=== PATIENT | male | born 1955 | race Caucasian/White ===

== ENCOUNTER 2023-09-26 01:22 | Day surgery (SDC) | payer MEDICARE, SELFPAY ==
[2023-09-12 10:34] VITALS: BMI 26.4
--- NOTE | 2023-09-24 09:07 | SUR.PREOP ---
Patient called regarding upcoming procedure. Reviewed preop instructions, appointment times, and procedure prep.
--- NOTE | 2023-09-25 13:36 | PM.HPGS ---
History of Present Illness History of Present Illness Consent: Risks, benefits, and alternatives have been discussed and questions answered. Patient agrees to proceed with procedure. Chief complaint: neoplasm screening Narrative: Abran Bran is a 68 year old male Referred for colon cancer screening. Review of Systems Review of Systems: All systems reviewed & are unremarkable except as noted in HPI and below PMFSH Family History Family History Sibling Diabetes mellitus Hypertension Mother Carcinoma of colon Social History Social History Smoking status: Never smoker Alcohol intake: never Substance use: never Substance use type: does not use Living arrangements: with family Occupation/Education: occupation Gender identity (if verbalized by the patient): Male Sexual Orientation (if Verbalized by the Patient): Straight or Heterosexual Spiritual care concerns: No Meds Home Medications and Allergies Home Medications Medication Instructions Recorded Confirmed Type potassium chloride 10 mEq 20 meq PO DAILY #180 tabs 08/07/23 09/26/23 Rx tablet,extended release cholecalciferol (vitamin D3) 25 25 mcg PO DAILY 09/12/23 09/26/23 History mcg (1,000 unit) tablet (Vitamin D3) losartan 50 mg tablet 50 mg PO DAILY 09/12/23 09/26/23 History triamterene 75 1 tablet PO DAILY 09/12/23 09/26/23 History mg-hydrochlorothiazide 50 mg tablet Allergies Allergy/AdvReac Type Severity Reaction Status Date / Time No Known Allergies Allergy Verified 09/26/23 06:54 Exam Const: General: alert Orientation/consciousness: patient oriented x3 Resp: Auscultation: clear to auscultation bilaterally Cardio: Rhythm: regular rhythm GI: GI Palp: Yes Soft to palpation and No Tenderness to palpation present (GI) Neuro: General: patient oriented x3 Assessment and Plan Assessment and plan (1) Colon cancer screening: Code(s): Z12.11 - Encounter for screening for malignant neoplasm of colon Status: Acute Assessment and Plan: Colonoscopy with possible biopsy or polypectomy or cautery or injection of substances.
[2023-09-26 06:56] VITALS: BP 130/94; PULSE 79; RESP 18; TEMP 36.6; O2SAT 96; BMI 26.9
[2023-09-26] MEDS: LACTATED RINGERS 1,000 ML 150 ML IV CONT (06:59)
--- NOTE | 2023-09-26 07:32 | WPDANESEPPF ---
Anes - Initial Pre Proc Eval Procedure: Operation Date: 09/26/23 08:00 Proposed Procedures p Screening Colonoscopy - Conner Hinton MD Date/Time: 09/26/23 07:32 Surgeon: Conner Hinton MD Pre Op Diagnosis: neoplasm screening Patient Data Age: 68 Gender: M Height: 1.83 m Weight: 90.2 kg Last Vital Signs Temp 97.9 F 09/26/23 06:56 Pulse 79 09/26/23 06:56 Resp 18 09/26/23 06:56 BP 130/94 H 09/26/23 06:56 Pulse Ox 96 09/26/23 06:56 O2 Del Method Room Air 09/26/23 06:56 Allergies Allergy/AdvReac Type Severity Reaction Status Date / Time No Known Allergies Allergy Verified 09/26/23 06:54 Home Medications Medication Instructions Recorded Confirmed Type potassium chloride 10 mEq 20 meq PO DAILY #180 tabs 08/07/23 09/26/23 Rx tablet,extended release cholecalciferol (vitamin D3) 25 25 mcg PO DAILY 09/12/23 09/26/23 History mcg (1,000 unit) tablet (Vitamin D3) losartan 50 mg tablet 50 mg PO DAILY 09/12/23 09/26/23 History triamterene 75 1 tablet PO DAILY 09/12/23 09/26/23 History mg-hydrochlorothiazide 50 mg tablet Patient hx anesthesia problems: none Family hx anesthesia problems: none Results Review: All pre-operative results and documents have been reviewed as part of the pre-operative evaluation. FORMERLY [facility], [facility] Family History Family History Sibling Diabetes mellitus Hypertension Mother Carcinoma of colon Social History Social History Smoking status: Never smoker Alcohol intake: never Substance use: never Substance use type: does not use Living arrangements: with family Occupation/Education: occupation Gender identity (if verbalized by the patient): Male Sexual Orientation (if Verbalized by the Patient): Straight or Heterosexual Spiritual care concerns: No Anes - Eval Final PreProcedure Day of Procedure 09/26/23 07:32 Patient weight: normal Heart: regular rate and rhythm Lungs: clear to auscultation Airway: Mallampati scale class II Neurological: alert and oriented Last oral intake: >/= 8 hours ASA classification: II Emergent: no Anesthetic plan: proceed Anesthesia type and monitoring: general GIVS and standard monitoring Results Review: All pre-operative results and documents have been reviewed as part of the pre-operative evaluation. Informed Consent: The patient's anesthetic plan and its attendant risks and benefits were discussed with the patient/family/POA. Questions were solicited and answers provided to the satisfaction of the patient/family/POA.
[2023-09-26 08:26] VITALS: BP 116/72; PULSE 66; RESP 18; O2SAT 96
[2023-09-26 08:36] VITALS: BP 122/71; PULSE 69; RESP 20; O2SAT 95
[2023-09-26 08:46] VITALS: BP 135/83; PULSE 67; RESP 16; O2SAT 95
== END 2023-09-26 08:54 | disposition home or self-care (01) ==
PROVIDERS: PCP Family Medicine; Visit Provider Internal Medicine Gastroenterology
PROC: 0DJD8ZZ Inspection of Lower Intestinal Tract, Via Natural or Artificial Opening Endoscopic (ICD-10-PCS; CPT 45378; principal; 2023-09-26 08:00)
DX: Z12.11 Encounter for screening for malignant neoplasm of colon (principal); K63.5 Polyp of colon; K57.30 Diverticulosis of large intestine without perforation or abscess without bleeding; E11.9 Type 2 diabetes mellitus without complications; I10 Essential (primary) hypertension; Z80.0 Family history of malignant neoplasm of digestive organs
CPT/HCPCS: 45385; 88305; J2704; J7120

== ENCOUNTER 2024-12-02 12:20 | Emergency (ER) | payer MEDICARE, SELFPAY ==
--- NOTE | ~2024-12-02 | CT_ITS ---
EXAMINATION: CT abdomen pelvis wo con DATE: 12/02/2024 13:25 INDICATION: Right ureteral stone. TECHNIQUE: Computed tomography (CT) of the abdomen and pelvis was performed without intravenous contr ast. Automated exposure control and iterative reconstruction technique were employed. The dose-length product was 228.83 mGy-cm. COMPARISON: None. FINDINGS: The visualized portions of the lung bases demonstrate mild atelectasis. No pleural effusion . The heart size is normal. No pericardial effusion. The liver, gallbladder, spleen, pancreas, and ad renal glands are normal. There is a 3 mm stone in right kidney. There is mild right hydronephrosis an d proximal hydroureter. There is a 5 mm stone in proximal right ureter. There is a 4 mm stone in left kidney. The prostate is severely enlarged. There are bilateral inguinal hernias containing fat. Ther e is diverticulosis of the colon without evidence of diverticulitis. The appendix is normal. There ar e no dilated loops of bowel. There are no pathologically enlarged lymph nodes. There is no free intra peritoneal fluid. There is moderate thoracic spondylosis and severe lower lumbar spondylosis. 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 IMPRESSION: 1. 5 mm stone in proximal right ureter with mild right hydronephrosis and proximal hydroureter. 2. Bilateral nonobstructing kidney stones. Reviewed, dictated and finalized at location B. M PROJECT MANAGER IMPRESSION: 1. 5 mm stone in proximal right ureter with mild right hydronephrosis and proxi mal hydroureter. 2. Bilateral nonobstructing kidney stones.
--- NOTE | ~2024-12-02 | XR_ITS ---
EXAMINATION: XR abdomen/kub 1V DATE: 12/02/2024 14:12 INDICATION: Right ureteral stone. TECHNIQUE: A supine view of the abdomen on 2 radiographs was obtained. COMPARISON: CT abdomen and pelvis 12/02/2024 FINDINGS: There are no dilated loops of bowel. The kidneys are obscured by bowel. There is a 5 mm sto ne in proximal right ureter at L4. There are phleboliths in the pelvis. IMPRESSION: 1. 5 mm stone in proximal right ureter. Reviewed, dictated and finalized at location B. ENTAL PAVER INSTALLER
[2024-12-02 12:27] VITALS: BP 137/70; PULSE 92; RESP 16; TEMP 36.6; O2SAT 98
[2024-12-02 12:43] LABS: Add Urine Microscopic? NO; Appearance Urine Clear (Clear); Bilirubin Urine Negative (Negative); Blood Urine Negative (Negative); Color Urine Yellow (Yellow); Glucose Urine UA Negative (Negative); Ketones Urine Negative (Negative); Leukocyte Esterase Ur Negative LEU/UL (Negative); Nitrate Urine Negative (Negative); Protein Urine Negative (Negative); Specific Grav Ur 1.012 (1.001-1.035); Urobilinogen Urine 0.2 mg/dL (<2.0)
[2024-12-02 12:44] VITALS: BP 142/94; PULSE 91; RESP 18; O2SAT 96
--- NOTE | 2024-12-02 12:48 | ED_ITS ---
HPI - Recheck/Abnormal Lab/Rx General Chief Complaint: Recheck/Abnormal Lab/Rx Stated Complaint: kidney stone, elevated kidney labs Time Seen by Provider: 12/02/24 12:39 History of Present Illness HPI narrative: 69-year-old male with history of hyperlipidemia, hypertension, kidney stones presents to the ED with at bedside for elevated creatinine. Patient was on vacation in [place] and on 11/17/24 went to the emergency department for right flank pain. He was found have a 5 mm stone at the right ureteropelvic junction with hydronephrosis and perinephric stranding. Patient brought his paperwork with him at bedside, creatinine at that time was 1.11. He then followed up with his PCP approximately a week later and had labs redrawn with a creatinine of 1.6. He then was referred to his urologist, Dr. Marx ([facility]) and had labs drawn yesterday which revealed a creatinine of 1.9. Patient was called by his urologist office and advised to come to the ER for evaluation given elevated creatinine. The patient states he has not had any pain in his flank or abdomen approximately 1 week. He does not believe he has passed the stone. He is not currently taking any pain medications. He did discontinue the naproxen he was taking about 10 days ago after his PCP advised him to discontinue it as that may have been the reason for his elevated creatinine. He denies hematuria, dysuria, abdominal pain, flank pain, N/V. He has no other complaints. Related Data Home Medications ?Medication ?Instructions ?Recorded ?Confirmed ?Last Taken ?Type cholecalciferol (vitamin D3) 25 25 mcg PO DAILY 09/12/23 11/25/24 09/25/23 History mcg (1,000 unit) tablet (Vitamin D3) losartan 50 mg tablet 50 mg PO DAILY 07/14/24 07/14/24 Unknown History potassium chloride 10 mEq 10 meq PO DAILY 07/14/24 07/14/24 Unknown History tablet,extended release triamterene 75 1 tablet PO DAILY 07/14/24 07/14/24 Unknown History mg-hydrochlorothiazide 50 mg tablet tamsulosin 0.4 mg capsule 0.4 mg PO QHS 11/25/24 11/25/24 Unknown History Allergies Allergy/AdvReac Type Severity Reaction Status Date / Time No Known Allergies Allergy Verified 12/02/24 12:34 Review of Systems 2 Review of Systems: All systems reviewed & are unremarkable except as noted in HPI and below PMFSH Family History Family History Sibling Diabetes mellitus Hypertension Mother Carcinoma of colon Social History Social History Social History: Spouse Smoking status: Never smoker Second hand tobacco smoke exposure: No Alcohol intake: never Substance use: never Substance use type: does not use Do You Feel Safe in your Home?: Yes Lack of Transportation: No Lack of Food: Never True Current Housing: I Have Housing Concerned About Future Housing: No Difficulty Paying Gas/Electric Bills: No Difficulty Paying for Meds: No Currently Unemployed: No Education: Don't Know Difficulty w/ Childcare or Family Care: No Living arrangements: with family Occupation/Education: occupation Gender identity (if verbalized by the patient): Male Sexual Orientation (if Verbalized by the Patient): Straight or Heterosexual Spiritual care concerns: No Exam 2 Narrative: GENERAL: Well-appearing, well-nourished, and in no acute distress. HEAD: Normocephalic, atraumatic. EYES: EOMI. ENT: Nares clear, no rhinorrhea or epistaxis. Mucous membranes moist. NECK: Supple. CHEST: Clear to auscultation. No respiratory distress. HEART: Regular rate and rhythm. No murmur heard. Normal peripheral pulses. ABDOMEN: Soft, nontender, nondistended, normal active bowel sounds. No rebound, guarding or rigidity. No CVA tenderness EXTREMITIES: Normal range of motion. No edema. SKIN: Warm, dry, no rash. NEURO: No focal deficits. Alert and oriented x3 Course Vital Signs Vital signs: Vital Signs Temperature 97.9 F 12/02/24 12:27 Pulse Rate 92 12/02/24 12:27 Respiratory Rate 16 12/02/24 12:27 Blood Pressure 137/70 12/02/24 12:27 Pulse Oximetry 98 12/02/24 12:27 Oxygen Delivery Room Air 12/02/24 12:27 Temperature 97.9 F 12/02/24 12:27 Pulse Rate 92 12/02/24 12:27 Respiratory Rate 16 12/02/24 12:27 Blood Pressure 137/70 01/21/25 12:27 Pulse Oximetry 98 12/02/24 12:27 Oxygen Delivery Room Air 12/02/24 12:27 MDM - Recheck/Abnormal Lab/Rx MDM Narrative Medical decision making narrative: 69-year-old male history of kidney stones presents to the emergency department for elevated creatinine on outpatient labs and known 5mm right UPJ stone. See HPI for further hx. Vitals are stable. Patient is afebrile, nontoxic appearing lying comfortably in exam bed. He is asymptomatic at the time of my evaluation. Will repeat lab work and CT abdomen pelvis without contrast to see if the stone is still present. Lab work shows no leukocytosis or anemia. Chemistries are remarkable for a creatinine of 1.99 and BUN of 30. Fluids provided. Urinalysis without infection or hematuria. CT abdomen pelvis shows a 5 mm stone in proximal right ureter with mild right hydronephrosis and proximal hydroureter. Pt and family updated on workup. He has not required any pain medications or antiemetics. Given climbing creatinine, I discussed the case with Dr. Frost (urology) who feels patient can f/u outpatient for treatment with shockwave lithotripsy. Recommends KUB. Patient updated on plan. He is currently on Flomax which I encouraged continuation of. States he also has plenty of Zofran at home to use p.r.n.. He was prescribed [place] at [place] [facility] but unfortunately developed significant nausea with this. Believes he has tolerated oxycodone while at past, will provide a script for this. Discussed close follow-up with his urologist. Return precautions discussed. He and his are agreeable with the plan verbalized understanding. Discharged in stable condition. Lab Data 12/02/24 12:58 12/02/24 12:58 Labs: Lab Results 12/02/24 12/02/24 Range/Units 12:32 12:58 WBC 6.9 (4.5-10.0) K/mm3 RBC 5.68 (4.6-6.20) M/mm3 Hgb 16.7 (14.0-18.0) g/dL Hct 47.4 (42.0-52.0) % MCV 83.5 (80-100) fl MCH 29.4 (26-34) pg MCHC 35.2 (32-36) g/dl RDW 13.8 (11.5-14.5) % Plt Count 212 (150-375) k/mm3 MPV 9.4 (7.4-10.4) fl Immature Gran % (Auto) 0.4 (0-0.5) % Neut % (Auto) 72.4 (45.5-73.1) % Lymph % (Auto) 14.7 L (18.3-44.2) % [place] % (Auto) 8.3 (2.6-8.5) % Eos % (Auto) 3.5 (0-4.4) % Baso % (Auto) 0.7 (0.2-1.2) % Lymph # (Auto) 1.01 (0.9-3.2) K/mm3 [place] # (Auto) 0.6 (0.1-0.6) K/mm3 Eos # (Auto) 0.2 (0-0.3) K/mm3 Baso # (Auto) 0.1 (0.0-0.1) K/mm3 Abs Immat Gran (auto) 0.03 (0.00-0.031) K/mm3 Absolute Neuts (auto) 5.0 (1.3-6.7) K/mm3 Absolute Nucleated RBC 0.000 (0.0-0.012) K/mm3 Nucleated RBC % 0.0 (0.0-0.2) % Sodium 139 (137-145) mmol/L Potassium 3.6 (3.4-5.0) mmol/L Chloride 97 L (98-107) mmol/L Carbon Dioxide 29 (22-30) mmol/L Anion Gap 13 H (4-12) mmol/L BUN 30 H (9-20) mg/dL Creatinine 1.99 H (0.7-1.3) mg/dL Estim Creat Clear Calc 36 ml/min Estimated GFR 34 L (59 - ) Glucose 104 (65-110) mg/dL Calcium 10.0 (8.4-10.2) mg/dL Urine Color Yellow (Yellow) Urine Appearance Clear (Clear) Urine pH 6.0 (5.0-9.0) Ur Specific [place] 1.012 (1.001-1.035) Urine Protein Negative (Negative) mg/dL Urine Glucose (UA) Negative (Negative) mg/dL Urine Ketones Negative (Negative) mg/dL Ur Blood (Man) Negative (Negative) Urine Nitrate Negative (Negative) Urine Bilirubin Negative (Negative) Urine Urobilinogen 0.2 (<2.0) mg/dL Leukocyte Esterase Rfl Negative (Negative) SONIA/UL Discharge Plan Discharge Clinical Impression: Calculus of proximal right ureter, Creatinine elevation Patient Disposition: Home, Self-Care Condition: Stable Instructions: Antibiotic Form, Kidney Stones (ED), How to Strain Your Urine (ED), Lithotripsy (DC) Additional Instructions: You were evaluated in the emergency department for elevated creatinine with unknown kidney stone. The kidney stone is 5 mm on the right ureter as discussed. Creatinine today is 1.99. Please follow-up closely with your urologist as he will need outpatient lithotripsy performed as recommended. Take oxycodone as needed for pain, continue Flomax, take Zofran as needed for nausea. Return to the emergency department if you develop a fever, significantly worsening pain, inability to urinate, or other concerning symptoms. Patient Language: Portuguese Prescriptions: New oxycodone-acetaminophen 5-325 mg tablet 1 tablet PO Q6H PRN (Reason: pain) Qty: 14 0RF No Action prednisone 50 mg tablet 50 mg PO DAILY Qty: 5 0RF doxycycline hyclate 100 mg capsule 100 mg PO DAILY Qty: 20 0RF losartan 50 mg tablet 50 mg PO DAILY potassium chloride 10 mEq tablet extended release 10 meq PO DAILY triamterene-hydrochlorothiazid 75-50 mg tablet 1 tablet PO DAILY omega-3 acid ethyl esters 1 gram capsule 4 cap PO DAILY Qty: 360 1RF tamsulosin 0.4 mg capsule 0.4 mg PO QHS cholecalciferol (vitamin D3) [Vitamin D3] 25 mcg (1,000 unit) Tablet 25 mcg PO DAILY potassium chloride 10 mEq tablet extended release 20 meq PO DAILY Qty: 180 2RF losartan 50 mg tablet See Rx Instructions .ROUTE .COMPLEX Qty: 90 3RF Dose Instruction: TAKE 1 TABLET DAILY Rx Instructions: TAKE 1 TABLET DAILY triamterene-hydrochlorothiazid 75-50 mg tablet See Rx Instructions .ROUTE .COMPLEX Qty: 90 1RF Dose Instruction: TAKE 1 TABLET EVERY MORNING Rx Instructions: TAKE 1 TABLET EVERY MORNING Follow-up/Referrals: Chaparro Zuniga MD [Primary Care Provider] - Jung Marx MD [Physician] -
[2024-12-02 13:11] LABS: Basophils Absolute Auto 0.1 K/mm3 (0.0-0.1); Basophils Percent Auto 0.7 % (0.2-1.2); Eosinophils Absolute Auto 0.2 K/mm3 (0-0.3); Eosinophils Percent Auto 3.5 % (0-4.4); Hematocrit 47.4 % (42.0-52.0); Hemoglobin 16.7 g/dL (14.0-18.0); Immature Granulocyte Absolute 0.03 K/mm3 (0.00-0.031); Immature Granulocyte Percent A 0.4 % (0-0.5); Lymphocytes Absolute Auto 1.01 K/mm3 (0.9-3.2); Lymphocytes Percent Auto 14.7 % (18.3-44.2); Mean Corpuscular HGB Conc 35.2 g/dl (32-36); Mean Corpuscular Hemoglobin 29.4 pg (26-34); Mean Corpuscular Volume 83.5 fl (80-100); Mean Platelet Volume 9.4 fl (7.4-10.4); Monocytes Absolute Auto 0.6 K/mm3 (0.1-0.6); Monocytes Percent Auto 8.3 % (2.6-8.5); Neutrophils Percent Auto 72.4 % (45.5-73.1); Platelet Count Result 212 k/mm3 (150-375); Red Blood Count 5.68 M/mm3 (4.6-6.20); Red Cell Distribution Width 13.8 % (11.5-14.5); White Blood Count 6.9 K/mm3 (4.5-10.0)
[2024-12-02 13:22] LABS: Anion Gap 13 mmol/L (4-12); Blood Urea Nitrogen 30 mg/dL (9-20); Carbon Dioxide 29 mmol/L (22-30); Chloride 97 mmol/L (98-107); Estimated CRCL calculation 36 ml/min; Estimated Glomerular Filt Rate 34; Glucose 104 mg/dL (65-110); Potassium 3.6 mmol/L (3.4-5.0); Sodium 139 mmol/L (137-145)
[2024-12-02] MEDS: SODIUM CHLORIDE 0.9% IV 1,000 ML 999 ML IV CONT (13:46)
[2024-12-02 14:22] VITALS: BP 142/88; PULSE 77; RESP 20; O2SAT 95
--- OUTSIDE RECORDS SUMMARY | 2024-12-04 18:10 | XMS_ITS | Patient Health Summary ---
Author Organization [facility] Address [address] [place] [address] Care Team Providers Care Table Tender Name Role Phone Unavailable Primary Care Provider Unavailabl e Note from [facility],non-owned Affiliates and Associated Physician Practices is amultiple site organization consisting of ambulatory clinics and hospital sitesin [place], [place], [place] and [place]. This disclosure is being madepursuant to the Care Everywhere program and may not contain all information available regarding this patient. Last updated 18.[facility] Allergies No known active allergies Medications Be aware that medications may not be up to date on this document. Always verify current medications with the patient. No known medications Active Problems No known active problems Immunizations * FLU VACCINE QUAD IIV4 PF ID(Given 08/18/2016) * INFLUENZA VACCINE, QUADR. (FLUZONE; FLULAVAL; FLUARIX; AFLURIA QUADRIVALENT; 6MO+), 0.5 ML (IIV4)(Given 09/20/2021, 08/20/2020, 08/26/2019, 08/17/2017) * iNFLUENZA VACCINE, RECOM-AVENDANO, QUADR. (FLUBLOCK QUADRIVALENT; 18Y+) (RIV4)(Given 10/18/2018) Social History Tobacco Use Types Packs/Day Years Used Date Smoking Tobacco: Never Assessed Sex and Gender Information Value Date Recorded Sex Assigned at Not on file Gender Identity Not on file Sexual Orientation Not on file Procedures * DERMATOPATHOLOGY(Performed 01/02/2023) * DERMATOPATHOLOGY(Performed 07/11/2022) * DERMATOPATHOLOGY(Performed 01/17/2021) * CULTURE ANAEROBE(Performed 01/27/2010) Performed for Cellulitis of Leg * CULTURE WOUND(Performed 01/27/2010) Performed for Cellulitis of Leg * GROSS + MICRO EXAM(Performed 01/26/2010) Performed for Cellulitis and Abscess of Unspecified Site Results * DERMATOPATHOLOGY (01/02/2023 12:00 AM STARTER MECHANIC) Only the most recent of3 resultswithin the time period is included. Case Report Dermatopathology Report ? Case: [id number] ? Authorizing Provider: ??Pranav Mathew MD ?Collected: ? 01/02/2023 12:00 AM ? Ordering Location: ? [facility] ?Received: ?01/03/2023 04:39 PM ? Pathologist: ? Khadra Meyer MD ? Specimen: ?Skin, left preauricular ? 3 4:12 PM [facility] DERMATOPATHOLOGY LABORATORY Final Diagnosis Specimen A. SKIN, left preauricular: SEBORRHEIC KERATOSIS (L82.1) 3 4:12 PM STARTER MECHANIC DERMATOPATHOLOGY LABORATORY Clinical History Nevus vs C CA vs BCCA Path#[id number] 3 4:12 PM STARTER MECHANIC DERMATOPATHOLOGY LABORATORY Gross Description Specimen A: Received is one formalin filled container labeled with the patient's name and designated left preauricular. The specimen consists of a shave biopsy measuring 5x4x1 mm. Jar 0. 3 4:12 PM [facility] DERMATOPATHOLOGY LABORATORY Microscopic Description Specimen A. SKIN, left preauricular: Sections show an acanthotic lesion composed of relatively uniform keratinocytes. There is hyperkeratosis and pseudo horn cysts formation. 3 4:12 PM [facility] DERMATOPATHOLOGY LABORATORY Disclaimer An external and internal positive and negative controls are appropriate for the histochemical, immunohistochemical and immunofluorescence stain(s) in this case (if any), except where stated explicitly. The performance characteristics of the stain(s) cited in this report were developed and its performance characteristic determined by the Dermatopathology Laboratory at [facility], directed by Dr. Osorio Anton. These tests need not be, and therefore are not, approved by the [place] Food and Drug Administration. The tests are used for clinical purposes. Billing Codes Specimen Charges Stain Charges 65106 1 3 4:12 PM [facility] DERMATOPATHOLOGY LABORATORY Embedded Images 3 4:12 PM [facility] DERMATOPATHOLOGY LABORATORY Pathology/Cytolog y TISSUE SPECIMEN FROM SKIN / Unknown 01/02/2023 01/03/2023 4:39 PM STARTER MECHANIC Pranav Mathew MD LAB - PATHOLOGY/CYTO LOGY ORDERABLES DERMATOPATHOLOGY LABORATORY [facility] - Department of Dermatology [address], [address] [phone] * CULTURE ANAEROBE (01/27/2010 2:35 PM CDT) Report [facility] Comment: Final - CULTURE ANAEROBIC POSITIVE COCCI ?Moderate growth ? ENTIRE LOWER LIMB / Unknown 01/27/2010 2:35 PM CDT Narrative [facility] - 02/01/2010 12:45 PM CDT brandon 01/27-Left lower leg abscess Steve Pina MD LAB - MICROBIOLO GY ORDERABLES Performing Organization Address [facility] Co de Phone Number [facility] [address] [place] [address] * CULTURE WOUND (01/27/2010 2:35 PM CDT) Report [facility] Comment: Final - GRAM STAIN Moderate WBC's Moderate gram positive cocci Organism observed in direct smear failed to grow in aerobic culture. CULTURE No growth. ENTIRE LOWER LIMB / Unknown 01/27/2010 2:35 PM CDT Narrative [facility] - 01/29/2010 8:10 AM CDT brandon -L.Lower Leg Abscess Steve Pina MD LAB - MICROBIOLO GY ORDERABLES Performing Organization Address [facility] Co de Phone Number [facility] [address] [place] [address] * GROSS + MICRO EXAM (01/26/2010 12:00 AM CDT) [facility] Surgeon DR. Giovanny PINA [facility] Grossed By ALFIE ABARCA [facility] Gross Report [facility] Comment: COPY TO ??SURGERY CENTER INDICATION FOR PROCEDURE ??LEFT CALF ABSCESS OPERATION ??INCISION AND DRAINAGE, LEFT LEG, CALF ABSCESS GROSS THE SPECIMEN IS RECEIVED IN ONE CONTAINER LABELED WITH THE PATIENT'S NAME AND BIOPSY, LEFT CALF ABSCESS. THE SPECIMEN CONSISTS OF WHAT APPEARS TO BE A DISRUPTED AND COLLAPSED CYST/NODULE. ??THE WALL MEASURES 1 X 1 X 0.1 CM. ??IT IS SERIALLY SECTIONED AND SUBMITTED ENTIRELY IN A SINGLE CASSETTE. LW/DC Microscopic Examination [facility] Comment: MICROSCOPIC THE LEFT CALF ABSCESS BIOPSY SHOWS FRAGMENTS OF KERATINOUS DEBRIS WITH SOME ADMIXED ACUTE INFLAMMATORY CELLS WHICH ARE NOT NUMEROUS. ??THE IMPRESSION IS THAT OF A KERATINOUS CYST RATHER THAN AN ABSCESS. AB/KM Diagnosis [facility] Comment: DIAGNOSIS 1. ?LEFT CALF LESION, BIOPSY -- ?KERATINOUS DEBRIS AND INFLAMMATION (SEE MICROSCOPIC) AB/KM Released by GALILEA COHEN M.D. [facility] CPT Code 55008 [facility] BIOPSY / Unknown 01/26/2010 01/28/20 10 11:07 AM CDT Steve Pina MD LAB - PATHOLOGY/ CYTOLOGY ORDERABLES [facility] [address] [place] [address]
--- OUTSIDE RECORDS SUMMARY | 2024-12-04 18:10 | XMS_ITS | Encounter Summary ---
Author Organization [facility] Address [address] [facility] [address] [place] [address] Care Team Providers Care Hook Up Name Role Phone Unavailable Primary Care Provider Unavailabl e Encounter Details Date Type Department Care Team (Late st Contact Info) Description 07/11/2022 Lab Requisition [facility] Care DermPath Lab [address] [facility] [place] [phone] Pranav Mathew MD [address] [place] [address] Social History Tobacco Use Types Packs/Day Years Used Date Smoking Tobacco: Never Assessed Sex and Gender Information Value Date Recorded Sex Assigned at Not on file Gender Identity Not on file Sexual Orientation Not on file documented as of this encounter Plan of Treatment Not on file documented as of this encounter Procedures Procedure Name Priority Date/Time Associated Diagnosis Comments DERMATOPATHOLOGY Routine 07/11/2022 12:0 0 AM CDT documented in this encounter Results * DERMATOPATHOLOGY (07/11/2022 12:00 AM CDT) Case Report Dermatopathology Report ? Case: [id number] ? Authorizing Provider: ??Pranav Mathew MD ?Collected: ? 07/11/2022 12:00 AM ? Ordering Location: ? [facility] ?Received: ?07/11/2022 04:58 PM ? Pathologist: ? Valencia Anton MD ? Specimen: ?Skin, right shoulder ? 2 4:18 PM CDT DERMATOPATHOLOGY LABORATORY Final Diagnosis Specimen A. 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 Melanoma. Path# [id number] 2 4:18 PM CDT DERMATOPATHOLOGY LABORATORY Gross Description Specimen A: Received is one formalin filled container labeled with the patient's name and designated right shoulder. The specimen consists of a shave biopsy measuring [id number]. Jar 0. 2 4:18 PM CDT DERMATOPATHOLOGY LABORATORY Microscopic Description Specimen A. SKIN, right shoulder: The epidermis shows parakeratosis, full thickness disorderly maturation of keratinocytes, mitoses at different levels, and dyskeratotic cells. 2 4:18 PM CDT DERMATOPATHOLOGY LABORATORY Disclaimer An external and internal positive and negative controls are appropriate for the histochemical, immunohistochemical and immunofluorescence stain(s) in this case (if any), except where stated explicitly. The performance characteristics of the stain(s) cited in this report were developed and its performance characteristic determined by the Dermatopathology Laboratory at [facility], directed by Dr. Osorio Anton. These tests need not be, and therefore are not, approved by the [place] Food and Drug Administration. The tests are used for clinical purposes. Billing Codes Specimen Charges Stain Charges 16971 1 2 4:18 PM CDT DERMATOPATHOLOGY LABORATORY Embedded Images 2 4:18 PM CDT DERMATOPATHOLOGY LABORATORY Pathology/Cytolog y TISSUE SPECIMEN FROM SKIN / Unknown 07/11/2022 07/11/2022 4:58 PM CDT Pranav Mathew MD LAB - PATHOLOGY/CYTO LOGY ORDERABLES DER[facility]ATHOLOGY LABORATORY [facility] [address] [place] [address], [address] [phone] documented in this encounter Visit Diagnoses Not on filedocumented in this encounter
--- OUTSIDE RECORDS SUMMARY | 2024-12-04 18:10 | XMS_ITS | Encounter Summary ---
Author Organization [facility] Address [address] [facility] [place] [address] Care Team Providers Care License And Permit Specialist Name Role Phone Unavailable Primary Care Provider Unavailabl e Encounter Details Date Type Department Care Team (Late st Contact Info) Description 01/03/2023 Lab Requisition [facility] Care DermPath Lab [address] [facility] [place] [phone] Pranav Mathew MD [address] [facility] [place] [address] Social History Tobacco Use Types [...] Priority Date/Time Associated Diagnosis Comments DERMATOPATHOLOGY Routine 01/02/2023 12:0 0 AM REGIONAL DRIVER documented in this encounter Results * DERMATOPATHOLOGY (01/02/2023 12:00 AM REGIONAL DRIVER) Case Report Dermatopathology Report ? Case: [id number] ? Authorizing Provider: ??Pranav Mathew MD ?Collected: ? 01/02/2023 12:00 AM ? Ordering Location: ? [facility] ?Received: ?01/03/2023 04:39 PM ? Pathologist: ? Khadra Meyer MD ? Specimen: ?Skin, left preauricular ? 3 4:12 PM [facility] DERMATOPATHOLOGY LABORATORY Final Diagnosis Specimen A. SKIN, left preauricular: SEBORRHEIC KERATOSIS (L82.1) 3 4:12 PM [facility] DERMATOPATHOLOGY LABORATORY Clinical History Nevus vs C CA vs BCCA Path#[id number] 3 4:12 PM [facility] DERMATOPATHOLOGY LABORATORY Gross Description Specimen A: Received is one formalin filled container labeled with the patient's name and designated left preauricular. The specimen consists of a shave biopsy measuring 5x4x1 mm. Jar 0. 3 4:12 PM [facility] DERMATOPATHOLOGY LABORATORY Microscopic Description Specimen A. SKIN, left preauricular: Sections show an acanthotic lesion composed of relatively uniform keratinocytes. There is hyperkeratosis and pseudo horn cysts formation. 3 4:12 PM [facility] DERMATOPATHOLOGY LABORATORY Disclaimer An external and internal positive and negative controls are appropriate for the histochemical, immunohistochemical and immunofluorescence stain(s) in this case (if any), except where stated explicitly. The performance characteristics of the stain(s) cited in this report were developed and its performance characteristic determined by the Dermatopathology Laboratory at [facility], directed by Dr. Osorio Anton. These tests need not be, and therefore are not, approved by the [place] Food and Drug Administration. The tests are used for clinical purposes. Billing Codes Specimen Charges Stain Charges 73201 1 3 4:12 PM REGIONAL DRIVER DERMATOPATHOLOGY LABORATORY Embedded Images 3 4:12 PM REGIONAL DRIVER DERMATOPATHOLOGY LABORATORY Pathology/Cytolog y TISSUE SPECIMEN FROM SKIN / Unknown 01/02/2023 01/03/2023 4:39 PM REGIONAL DRIVER Pranav Mathew MD LAB - PATHOLOGY/CYTO LOGY ORDERABLES DERMATOPATHOLOGY LABORATORY [facility] - Department of Dermatology [facility] [address] [place] [address], [address] [phone] documented in this encounter Visit Diagnoses Not on filedocumented in this encounter
--- OUTSIDE RECORDS SUMMARY | 2024-12-04 18:10 | XMS_ITS | Referral Summary ---
Author Organization [facility] Address [address] [facility] [place] [address] Care Team Providers Care Services Coordinator Name Role Phone Unavailable Primary Care Provider Unavailabl e Source Comments [facility],non-owned Affiliates and Associated Physician Practices is amultiple site organization consisting of ambulatory clinics and hospital sitesin [place], [place], [place] and [place]. This disclosure is being madepursuant to the Care Everywhere program and may not contain all information available regarding this patient. Last updated 18.[facility] Allergies No known active allergies Medications Be aware that medications may not be up to date on this document. Always verify current medications with the patient. No known medications Active Problems No known active problems Immunizations Name Administration Dates Next Due FLU VACCINE QUAD IIV4 PF ID 08/18/2016 INFLUENZA VACCINE, QUADR. (F LUZONE; FLULAVAL; FLUARIX; AFLURIA QUADRIVALENT; 6MO+), 0.5 ML (IIV4) 09/20/2021,08/20/2020,08/26/2019, 017 iNFLUENZA VACCINE, RECOM-AVENDANO, QUADR. (FLUBLOCK QUADRIVALENT; 18Y+) (RIV4) 10/18/2018 Social History Tobacco Use Types Packs/Day Years Used Date Smoking Tobacco: Never Assessed Sex and Gender Information Value Date Recorded Sex Assigned at Not on file Gender Identity Not on file Sexual Orientation Not on file Plan of Treatment Not on file
--- OUTSIDE RECORDS SUMMARY | 2024-12-04 18:10 | XMS_ITS | Encounter Summary ---
Author Organization [facility] Address [address] [place] [address] Care Team Providers Care Beef Lugger Name Role Phone Unavailable Primary Care Provider Unavailabl e Encounter Details Date Type Department Care Team (Late st Contact Info) Description 01/18/2021 Lab Requisition [facility] DermPath Lab [address] [facility] [place] [phone] Pranav Mathew MD [address] [place] [address] Social History Tobacco Use Types [...] Priority Date/Time Associated Diagnosis Comments DERMATOPATHOLOGY Routine 01/17/2021 3:33 AM RETIREMENT ADMINISTRATOR documented in this encounter Results * DERMATOPATHOLOGY (01/17/2021 3:33 AM RETIREMENT ADMINISTRATOR) Case Report Dermatopathology Report ? Case: [id number] ? Authorizing Provider: ??Pranav Mathew MD ?Collected: ? 01/17/2021 03:33 AM ? Ordering Location: ? [facility] Derm[facility] Lab ?Received: ?01/18/2021 06:42 AM ? Pathologist: ? Jessica Castelan MD ? Specimen: ?Skin, left lower lip ? 1:29 PM [facility] DERMATOPATHOLOGY LABORATORY Final Diagnosis Specimen A. SKIN, left lower lip: SQUAMOUS CELL CARCINOMA IN SITU, PRESENT AT THE BASE OF THE SPECIMEN (D04.39) (see microscopic description and comment) 1:29 PM [facility] DERMATOPATHOLOGY LABORATORY Clinical History AK vs SCCA. Path# [id number]. 1:29 PM [facility] DERMATOPATHOLOGY LABORATORY Gross Description Specimen A: Received is one formalin filled container labeled with the patient's name and designated left lower lip. The specimen consists of a shave biopsy measuring [id number]. Jar 0. 1:29 PM [facility] DERMATOPATHOLOGY LABORATORY Microscopic Description Specimen A. SKIN, left lower lip: The epidermis shows parakeratosis, full thickness disorderly maturation of keratinocytes, mitoses at different levels, and dyskeratotic cells. The lesion extends to the base of the biopsy. COMMENT: An invasive squamous cell carcinoma cannot be ruled out. 1:29 PM [facility] DERMATOPATHOLOGY LABORATORY Disclaimer An external and internal positive and negative controls are appropriate for the histochemical, immunohistochemical and immunofluorescence stain(s) in this case (if any), except where stated explicitly. The performance characteristics of the stain(s) cited in this report were developed and its performance characteristic determined by the Dermatopathology Laboratory at [facility], directed by Dr. Osorio Anton. These tests need not be, and therefore are not, approved by the [place] Food and Drug Administration. The tests are used for clinical purposes. Billing Codes Specimen Charges Stain Charges 69704 1 1 1:29 PM RETIREMENT ADMINISTRATOR DERMATOPATHOLOGY LABORATORY Embedded Images 1 1:29 PM RETIREMENT ADMINISTRATOR DERMATOPATHOLOGY LABORATORY Pathology/Cytolo gy TISSUE SPECIMEN FROM SKIN / Unknown 01/17/2021 3:33 AM RETIREMENT ADMINISTRATOR 01/18/2021 6:42 AM RETIREMENT ADMINISTRATOR Pranav Mathew MD LAB - PATHOLOGY/CYTO LOGY ORDERABLES DERMATOPATHOLOGY LABORATORY [facility] - Department of Dermatology [facility] Medicine [address] [place] [address], [address] [phone] documented in this encounter Visit Diagnoses Not on filedocumented in this encounter
--- OUTSIDE RECORDS SUMMARY | 2024-12-04 18:10 | XMS_ITS | Referral Summary ---
Author Organization [facility] Address [address] [place] [address] Care Team Providers Care Alpine Patroller Name Role Phone Chaparro Zuniga MD Primary Care Provider Encounters Date Type Department Care Team Description 10/23/2024 9:29 AM DRAPERY AND UPHOLSTERY ESTIMATOR - 10/23/2024 11:59 PM DRAPERY AND UPHOLSTERY ESTIMATOR Hospital Encounter [facility] [address] [place] [address] Status post orthopedic surgery, follow-up exam Discharge Disposition: Discharge to home or self care 10/23/2024 9:45 AM DRAPERY AND UPHOLSTERY ESTIMATOR Office Visit [facility] Orthopaedic Surgery [address] [facility] Advanced Medicine 12th [place] [address] [place] [address] Conor Almanza MD Status post orthopedic surgery, follow-up exam (Primary Dx); Acute pain of right shoulder; Infection of joint (HCC) from Last 3 Months Allergies No known active allergies Medications potassium chloride ER 10 mEq CR tabletIndicatio ns:hypokalemia prevention Take 1 tablet/capsu le (10 mEq total) by mouth every morning 11/13/2021 Active triamterene-hyd roCHLOROthiazid e (MAXZIDE,DYAZID E) 75-50 mg per tabletIndicatio ns:Edema,hypert ension Take 1 tablet by mouth every morning 09/09/2021 Active losartan (COZAAR) 50 mg tabletIndicatio ns:hypertension Take 1 tablet (50 mg total) by mouth every morning Active cholecalciferol (VITAMIN D-3) 1,000 unit capsuleIndicati ons:Vitamin D Deficiency Take 1 capsule (1,000 Units total) by mouth every morning Active Active Problems Problem Noted Date Diagnosed Date Infection of joint 11/07/2022 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 Overview (11/03/2022): Added automatically from request for surgery [id number] Hypertension 12/27/2021 At risk for obstructive sleep apnea 12/27/2021 Complete rupture of rotator cuff 12/16/2021 Overview (12/16/2021): Added automatically from request for surgery [id number] Immunizations Name Administration Dates Next Due Influenza, Unspecified 09/29/2022 Social History Tobacco Use Types Packs/Day Years Used Date Smoking Tobacco: Never Smokeless Tobacco: Never Tobacco Cessation:Counseling Given: Not Answered OASIS D0700: Social Isolation Answer Da te Recorded Frequency of experiencing loneliness or isolatio n Never 12/19/2022 OASIS A1250: Transportation Answer Date Recorded Lack of Transportation (Medical) No 12/19/2022 Lack of Transportation (Non-Medical) No 12/19/2022 Patient Unable or Declines to Respond No 12/19/2022 OASIS B1300: Health Literacy Answer Daniel e Recorded Frequency of needing help to read materials from doctor or pharmacy Never 12/19/2022 AUDIT-C Answer Date Recorded Frequency of Alcohol Consumption Not on file 04/25/2023 Q2: How many drinks containi ng alcohol do you have on a typical day when you are drinking? Patient does not drink Frequency of Binge Drinking Not on file 04/12 Personal Safety Answer Date Recorded Getting School Help Needed Denies 10/24 Sex and Gender Information Value Date Recorded Sex Assigned at Not on file Legal Sex Male 12:54 AM DRAPERY AND UPHOLSTERY ESTIMATOR Gender Identity Not on file Sexual Orientation Not on file Last Filed Vital Signs Vital Sign Reading Time Taken Comments Blood Pressure 139/87 04/25/2023 9:43 AM CDT Pulse 72 04/25/2023 9:43 AM CDT Temperature 36.3 ??C (97.3 ??F) 04/25/2023 9:43 AM CD T Respiratory Rate 17 12/19/2022 12:40 PM DRAPERY AND UPHOLSTERY ESTIMATOR Oxygen Saturation 95% 04/25/2023 9:43 AM CDT Inhaled Oxygen Concentration - - Weight 93.4 kg (206 lb) 04/25/2023 9:43 AM CDT Height 182.9 cm (6') 04/25/2023 9:43 AM CDT Body Mass Index 27.94 04/25/2023 9:43 AM CDT Plan of Treatment Not on file Medical Devices Implanted Type Area Case Management Social Worker Device Identifier Shelf Expiration Date Model / Serial / Lot Tornier Inc [id number] Tornier Aequalis Perform 25mm Lateralize Augment Reverse Shoulder - [id number] - [id number] Implanted:Qty : 1 on 12/28/2021 by Conor Almanza MD at [facility] Other - see comments Right: Shoulder [employer] [id number] 11/14/2026 [id number] / [id number] / [employer] Dwx3ss Stem Perform Sz 3 Humeral - [id number] - [id number] Implanted:Qty : 1 on 12/28/2021 by Conor Almanza MD at [facility] Other - see comments Right: Shoulder [employer] [id number] 11/24/2026 [id number] / [id number] / [employer] Tornier Aequalis Perform 39mm Reverse Shoulder Standard Sphere [id number] - [id number] - [id number] Implanted:Qty : 1 on 11/07/2022 by Maik Galdamez MD at [facility] Other - see comments Right: Shoulder [employer] [id number] 08/15/2027 [id number] / [id number] / Description:Implant pause pe rformed [employer] Insert Perform 10 Deg [id number] - [id number] - [id number] Implanted:Qty : 1 on 11/07/2022 by Maik Galdamez MD at [facility] Other - see comments Right: Shoulder Agu[employer] [id number] 08/07/2025 [id number] / [id number] / Description:implant Pause pe rformed Tornier Inc Nfh640 Aequalis Perform Reversed 5mm 38mm Peripheral Glenoid Screw - Sna - [id number] Implanted:Qty : 1 on 12/28/2021 by Conor Almanza MD at [facility] Screw Right: Shoulder [employer] [id number] / NA / Tornier Inc [id number] Aequalis Perform Reversed Od6.5 Mm L45 Mm Central Glenoid Screw Baseplate Nonsterile - Sna - [id number] Implanted:Qty : 1 on 12/28/2021 by Conor Almanza MD at [facility] Screw Right: Shoulder [employer] [id number] / NA / Tornier Inc [id number] Aequalis Perform Reversed 5mm 26mm Peripheral Glenoid Screw - Sna - [id number] Implanted:Qty : 1 on 12/28/2021 by Conor Almanza MD at [facility] Screw Right: Shoulder [employer] [id number] / NA / Explanted Type Area Case Management Social Worker Device Identifier Shelf Expiration Date Model / Serial / Lot Tornier Inc Bvo495 Tornier Aequalis Perform 39mm Reverse Shoulder Standard Sphere - [id number] - [id number] Implanted:Qty : 1 on 12/28/2021 by Conor Almanza MD at [facility] Explanted:Qty : 1 on 11/07/2022 by Maik Galdamez MD at [facility] Other - see comments Right: Shoulder [employer] [id number] 06/30/2026 [id number] / [id number] / [employer] [id number] Insert Perform [id number] - [id number] - [id number] Implanted:Qty : 1 on 12/28/2021 by Conor Almanza MD at [facility] Explanted:Qty : 1 on 11/07/2022 by Maik Galdamez MD at [facility] Other - see comments Right: Shoulder [employer] [id number] 10/21/2026 [id number] / [id number] / Tornier Inc Zcf251 Aequalis Perform Reversed Od6.5 Mm L30 Mm Central Glenoid Screw Baseplate Nonsterile - Sna - [id number] Explanted:Qty : 1 on 12/28/2021 by Conor Almanza MD at [facility] Screw Right: Shoulder [employer] [id number] / NA / [employer] Aequalis Perform Reversed Od5 Mm L50 Mm Peripheral Glenoid Screw Baseplate Nonsterile Zie825 - Sna - [id number] Explanted:Qty : 1 on 11/07/2022 by Maik Galdamez MD at [facility] Screw Right: Shoulder [employer] [id number] / NA / Description:Used to explant insert Procedures Procedure Name Priority Date/Time Associated Diagnosis Comments XR SHOULDER RIGHT 2 OR MORE VIEWS Schedule Routine, Read Routine (OP Routine) 10/23/2024 9:36 AM DRAPERY AND UPHOLSTERY ESTIMATOR Status post orthopedic surgery, follow-up exam from Last 3 Months Results * XR Shoulder Right 2 or More Views (10/23/2024 9:36 AM DRAPERY AND UPHOLSTERY ESTIMATOR) Anatomical Region Laterality Modality Upper Extremities, Shoulder Right Comp uted Radiography 10/23/2024 9:59 AM DRAPERY AND UPHOLSTERY ESTIMATOR Impressions 10/23/2024 11:43 AM DRAPERY AND UPHOLSTERY ESTIMATOR 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 Dictated by: Isabel Mcnamara MD The radiology attending physician has personally reviewed this study, and had reviewed and/or edited this written report and agrees with it. Electronically signed by: Tavares Liu D.O. Narrative 10/23/2024 11:43 AM DRAPERY AND UPHOLSTERY ESTIMATOR EXAMINATION: XR SHOULDER RIGHT 2 OR MORE VIEWS HISTORY: ??Right shoulder pain FINDINGS: Comparison is made to right shoulder radiographs 10/25/2023. 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 ??No periprosthetic fracture or lucency. ??Moderate acromioclavicular joint osteoarthritis. Procedure Note Tavares Liu, DO - 10/23/2024 EXAMINATION: XR SHOULDER RIGHT 2 OR MORE VIEWS HISTORY: Right shoulder pain FINDINGS: Comparison is made to right shoulder radiographs 10/25/2023. 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 No periprosthetic fracture or lucency. Moderate acromioclavicular joint osteoarthritis. 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 Dictated by: Isabel Mcnamara MD The radiology attending physician has personally reviewed this study, and had reviewed and/or edited this written report and agrees with it. Electronically signed by: Tavares iLu D.O. Conor Almanza MD IMG XR PROCEDURES Fin al Result from Last 3 Months Insurance MEDICARE [facility] Member Subscriber Plan / Payer ( fective 2022-Present) Name:Abran Bran Relation to Subscriber:Self Name:Abran Bran Payer ID:[id number] Group ID:Not on file Type:[facility] Address: [facility] [address] [place] [address] COUNT INCLUDES THE [facility] [address] MEDICARE [facility]LY [facility] INSURANCE COUNT INCLUDES THE [facility] [id number] MEDICARE [facility] INSURANCE Advance Directives For more information, please contact: [phone] * Full Code (Latest Code Status on File) Date Activated Date Inactivated Comments 11/07/2022 5:45 PM 11/11/2022 6:19 PM Care Teams Alpine Patroller Relationship Specialty Start Date End Date Chaparro Zuniga MD [address] [facility] [address] [place] [address] PCP - General Family Medicine 12/16/21
--- OUTSIDE RECORDS SUMMARY | 2024-12-04 18:10 | XMS_ITS | Encounter Summary ---
Author Organization [facility] Address [address] [place] [address] Phone Care Team Providers Care Accounts Payable Assistant Name Role Phone Chaparro Zuniga MD Primary Care Provider Encounter Details Date Type Department Care Team (Late st Contact Info) Description 11/02/2022 Telephone [facility] Orthopaedic Surgery [address] [facility] 2nd [address] [place] [address] Conor Almanza MD [address] [facility] [address] [place] [address] Social History Tobacco Use Types Packs/Day Years Used Date Smoking Tobacco: Never Smokeless Tobacco: Never AUDIT-C Answer Date Recorded Q1: How often do you have a drink containing alc ohol? Never 12/22/2021 Average Number of Drinks Not on file 022 Frequency of Binge Drinking Not on file 12/13 Sex and Gender Information Value Date Recorded Sex Assigned at Not on file Legal Sex Male 12:54 AM INDUSTRIAL GAS SERVICER Gender Identity Not on file Sexual Orientation Not on file documented as of this encounter Plan of Treatment Not on file documented as of this encounter Visit Diagnoses Not on filedocumented in this encounter Care Teams Accounts Payable Assistant Relationship Specialty Start Date End Date Chaparro Zuniga MD [address] [facility] [address] [address] PCP - General Family Medicine 12/16/21 documented as of this encounter
--- OUTSIDE RECORDS SUMMARY | 2024-12-04 18:10 | XMS_ITS | Clinical Summary ---
Author Organization [email or web address] Address [address] [facility] [place] [address] Care Team Providers Care Animal Shelter Manager Name Role Phone Unavailable Primary Care Provider Unavailabl e Source Comments [email or web address],non-owned Affiliates and Associated Physician Practices is amultiple site organization consisting of ambulatory clinics and hospital sitesin [place], [place], [place] and [place]. This disclosure is being madepursuant to the Care Everywhere program and may not contain all information available regarding this patient. Last updated [email or web address] Allergies No known active allergies Medications Be [...] Orientation Not on file Plan of Treatment Health Maintenance Due Date Last Done Comments COLOGUARD (AGES 45-75) - COLON CA SCREENING 1957 COLON MONITORING 1957 COLONOSCOPY - COLON CA SCREENING 1957 CT COLONOGRAPHY - COLON CA SCREENING 1957 Colorectal Cancer Screening 1957 FIT - COLON CA SCREENING 1957 FLEX SIG - COLON CA SCREENING 1957 LIPID TESTING 1957 MEDICARE AWV ? 12 MONTHS 1957 HEPATITIS C SCREENING 06/07/1975 DTAP/TDAP/TD VACCINES (1 - Tdap) 1976 PNEUMOCOCCAL VACCINE 50+ (1 of 1 - PCV) 2007 ZOSTER VACCINE (1 of 2) 2007 COVID-19 VACCINE (2 - season) 2024 04/02/2021 INFLUENZA VACCINE (#1) 2024 , 08/20/2020, 08/26/2019, Additional history exists DEPRESSION SCREENING 11/12/2024 Respiratory Syncytial Virus (RSV) Vaccine Pt: or over 60 yrs (1 - 1-dose 75+ series) 2032 HEPATITIS B VACCINE Aged Out No longe r eligible based on patient's age to complete this topic HIB VACCINE Aged Out No longer eligi ble based on patient's age to complete this topic HPV VACCINE Aged Out No longer eligi ble based on patient's age to complete this topic MENINGOCOCCAL (Group B) VACCINE Aged Out No longer eligible based on patient's age to complete this topic MENINGOCOCCAL VACCINE Aged Out No kamila cinthia eligible based on patient's age to complete this topic
--- OUTSIDE RECORDS SUMMARY | 2024-12-04 18:10 | XMS_ITS | Clinical Summary ---
Author Organization [facility] Address [address] [place] [address] Care Team Providers Care Contact Lens Assistant Name Role Phone Chaparro Zuniga MD Primary Care Provider Allergies No known active allergies Medications potassium [...] (11/03/2022): Added automatically from request for surgery [id number] Hypertension 12/27/2021 At risk for obstructive sleep apnea 12/27/2021 Complete rupture of rotator cuff 12/16/2021 Overview (12/16/2021): Added automatically from request for surgery [id number] Encounters Date Type Department Care Team Description 10/23/2024 9:45 AM FORMING OPERATOR Office Visit [facility] Orthopaedic Surgery [address] [facility] Advanced Medicine [address]th [place] [address] [place] [address] Conor Almanza MD Status post orthopedic surgery, follow-up exam (Primary Dx); Acute pain of right shoulder; Infection of joint (HCC) 10/23/2024 9:29 AM FORMING OPERATOR - 10/23/2024 11:59 PM FORMING OPERATOR Hospital Encounter [facility] [address] [place] [address] Status post orthopedic surgery, follow-up exam Discharge Disposition: Discharge to home or self care from Last 3 Months Immunizations Name Administration Dates Next Due Influenza, Unspecified 09/29/2022 Surgical History Surgery Date Site/Laterality Comments OTHER SURGICAL HISTORY 11/12/2009 - 11/11/2010 Excision cyst left lower leg (office procedure) JOINT REPLACEMENT Right shoulder IR PICC LINE PLACEMENT > 5 YEARS 11/09/2022 N/A Medical History Medical History Date Comments Hypertension PONV (postoperative nausea and vomiting) Pt sttaes probably from the pain medication given after excision cyst left lower leg in 2009 Arthritis Family History Medical History Relation Name Comments Cancer Father Cancer Mother Diabetes Mother Diabetes Sister Relation Name Status Comments Father Mother Sister Social History Tobacco Use Types Packs/Day Years [...] on file Legal Sex Male 12:54 AM FORMING OPERATOR Gender Identity Not on file Sexual Orientation Not on file Obstetrics History Last Filed Vital Signs Vital Sign Reading Time Taken Comments Blood Pressure 139/87 04/25/2023 9:43 AM CDT Pulse 72 04/25/2023 9:43 AM CDT Temperature 36.3 ??C (97.3 ??F) 04/25/2023 9:43 AM CD T Respiratory Rate 17 12/19/2022 12:40 PM FORMING OPERATOR Oxygen Saturation 95% 04/25/2023 9:43 AM CDT Inhaled Oxygen Concentration - - Weight 93.4 kg (206 lb) 04/25/2023 9:43 AM CDT Height 182.9 cm (6') 04/25/2023 9:43 AM CDT Body Mass Index 27.94 04/25/2023 9:43 AM CDT Plan of Treatment Health Maintenance Due Date Last Done Comments Colon Cancer Screening-Colonoscopy 1957 Depression Screening 1957 Hepatitis C Screening 1957 Prostate Cancer Screening-PSA 1957 Hepatitis B Screening 1975 DTaP/Tdap/Td Vaccine (2 - Td or Tdap) 05/13/2020 05/13/2010, 12/28/1999 Zoster Vaccine (2 of 2) 12/09/2021 10/14/2021 Pneumococcal vaccine 65+ (1 of 1 - PCV) 2022 Well Visit 65+ 2022 Fall Risk Assessment 11/11/2023 11/11/2022 Covid-19 Vaccine (3 - 2023-2 5 season) 2024 11/11/2021, 04/02/2021 Influenza Vaccine (#1) 2024 2, 09/20/2021, 08/20/2020, Additional history exists Medical Devices Implanted Type Area Alliances Consultant Device Identifier Shelf Expiration Date Model / Serial / Lot The Old [employer] Tim [id number] Lyndon Mandel Perform 25mm Lateralize Augment Reverse Shoulder - [id number] - [id number] Implanted:Qty : 1 on 12/28/2021 by Conor Almanza MD at [facility] Other - see comments Right: Shoulder [employer] [id number] 11/14/2026 PBV957 / [id number] / Agu[employer] Dwx3ss Stem Perform Sz 3 Humeral - [id number] - [id number] Implanted:Qty : 1 on 12/28/2021 by Conor Almanza MD at [facility] Other - see comments Right: Shoulder [employer] [id number] 11/24/2026 DWX3SS / [id number] / [employer] Tornier Aequalis Perform 39mm Reverse Shoulder Standard Sphere Frm312 - [id number] - [id number] Implanted:Qty : 1 on 11/07/2022 by Maik Galdamez MD at [facility] Other - see comments Right: Shoulder [employer] [id number] 08/15/2027 FHR971 / [id number] / Description:Implant pause pe rformed [employer] Insert Perform 10 Deg [id number] [id number] - [id number] - [id number] Implanted:Qty : 1 on 11/07/2022 by Maik Galdamez MD at [facility] Other - see comments Right: Shoulder [employer] [id number] 08/07/2025 [id number] / [id number] / Description:implant Pause pe rformed T[employer]ier Inc Azp998 Aequalis Perform Reversed 5mm 38mm Peripheral Glenoid Screw - Sna - [id number] Implanted:Qty : 1 on 12/28/2021 by Conor Almanza MD at [facility] Screw Right: Shoulder [employer] WFW481 / NA / Tornier Inc Ryh340 Aequalis Perform Reversed Od6.5 Mm L45 Mm Central Glenoid Screw Baseplate Nonsterile - Sna - [id number] Implanted:Qty : 1 on 12/28/2021 by Conor Almanza MD at [facility] Screw Right: Shoulder [employer] PYL881 / NA / Tornier Inc Dtu505 Aequalis Perform Reversed 5mm 26mm Peripheral Glenoid Screw - Sna - [id number] Implanted:Qty : 1 on 12/28/2021 by Conor Almanza MD at [facility] Screw Right: Shoulder [employer] PPK549 / NA / Explanted Type Area Alliances Consultant Device Identifier Shelf Expiration Date Model / Serial / Lot Tornier Inc [id number] Tornier Aequalis Perform 39mm Reverse Shoulder Standard Sphere - [id number] - [id number] Implanted:Qty : 1 on 12/28/2021 by Conor Almanza MD at [facility] Explanted:Qty : 1 on 11/07/2022 by Maik Galdamez MD at [facility] Other - see comments Right: Shoulder [employer] [id number] 06/30/2026 [id number] / [id number] / [employer] [id number] Insert Perform [id number] - [id number] - [id number] Implanted:Qty : 1 on 12/28/2021 by Conor Almanza MD at [facility] Explanted:Qty : 1 on 11/07/2022 by Maik Galdamez MD at [facility] Other - see comments Right: Shoulder [employer] [id number] 10/21/2026 DWK2600 / [id number] / Tornier Inc Mqp523 Aequalis Perform Reversed Od6.5 Mm L30 Mm Central Glenoid Screw Baseplate Nonsterile - Sna - [id number] Explanted:Qty : 1 on 12/28/2021 by Conor Almanza MD at [facility] Screw Right: Shoulder [employer] LED465 / NA / [employer] Aequalis Perform Reversed Od5 Mm L50 Mm Peripheral Glenoid Screw Baseplate Nonsterile Qlb189 - Sna - [id number] Explanted:Qty : 1 on 11/07/2022 by Maik Galdamez MD at [facility] Screw Right: Shoulder [employer] OGT874 / NA / Description:Used to explant insert Procedures Procedure Name Priority Date/Time Associated Diagnosis Comments XR SHOULDER RIGHT 2 OR MORE VIEWS Schedule Routine, Read Routine (OP Routine) 10/23/2024 9:36 AM FORMING OPERATOR Status post orthopedic surgery, follow-up exam from Last 3 Months Results * XR Shoulder Right 2 or More Views (10/23/2024 9:36 AM FORMING OPERATOR) Anatomical Region Laterality Modality Upper Extremities, Shoulder Right Comp uted Radiography 10/23/2024 9:59 AM FORMING OPERATOR Impressions 10/23/2024 11:43 AM FORMING OPERATOR 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 Dictated by: Isabel Mcnamara MD The radiology attending physician has personally reviewed this study, and had reviewed and/or edited this written report and agrees with it. Electronically signed by: Tavares Liu D.O. Narrative 10/23/2024 11:43 AM FORMING OPERATOR EXAMINATION: XR SHOULDER RIGHT 2 OR MORE [...] it. Electronically signed by: Tavares Liu D.O. Conor Almanza MD IMG XR PROCEDURES Fin al Result from Last 3 Months Insurance MEDICARE [facility] [id number] MEDICARE [facility]URANCE [facility] [id number] MEDICARE [facility] INSURANCE Advance Directives For more information, please contact: [phone] * Full Code (Latest Code Status on File) Date Activated Date Inactivated Comments 11/07/2022 5:45 PM 11/11/2022 6:19 PM Care Teams Contact Lens Assistant Relationship Specialty Start Date End Date Chaparro Zuniga MD [address] [facility] [address] [place] [address] PCP - General Family Medicine 12/16/21
--- OUTSIDE RECORDS SUMMARY | 2024-12-04 18:31 | XMS_ITS | Clinical Summary ---
Author Organization [facility] Address [address] [place] [address] Care Team Providers Care Clinical Training Coordinator Name Role Phone Chaparro Zuniga MD Primary Care Provider Immunizations Name Administration Dates Next Due Shingrix Recombinant Dose 12/22/2021,10/14/2021 Social History Tobacco Use Types Packs/Day Years Used Date Smoking Tobacco: Never Assessed Sex and Gender Information Value Date Recorded Sex Assigned at Not on file Legal Sex Male 11:55 AM EST Gender Identity Not on file Sexual Orientation Not on file Plan of Treatment Health Maintenance Due Date Last Done Comments Colorectal Cancer: COLONOSCO PY Screening every 10 yrs (or Modifier) 1957 Depression: Screening Annual ly using PHQ-2/9 in Adults 18 yrs or above (or HM Modifier)([facility]) 1975 Hepatitis C Virus Infection in Adolescents and Adults: Screening (or Modifier) ([facility]) 1975 SDOH Screening Reminder: Tara song for all adults ([facility]) 1975 Tobacco Smoking Cessation: i n Adults excluding Women: Behavioral and Pharmacotherapy Interventions ([facility]) 1975 DTaP/Tdap/Td Vaccines ([facility]) (1 - Tdap) 1976 Lipid Screening: Every 5 yrs for Men aged 35+ (or HM Modifier) ([facility]) 1993 Colorectal Cancer Screening 45 -75 Yrs (or HM Modifier) 2002 Colorectal Cancer: FLEXIBLE SIGMOIDOSCOPY Screening every 5 yrs 2002 Colorectal Cancer: Fecal Imm unochemical Test (FIT) Annually [facility] 2002 Colorectal Cancer: High-sens itivity gFOBT Screening Annually [facility] 2002 Colorectal Cancer: Stool Col oguard Screening every 3 yrs 2002 Colorectal Cancer:CT Colonog desire Screening every 5 yrs 2002 RSV Vaccines (1 - 1-dose 60+ series) 2017 Pneumococcal Vaccination Scr eening: Patients 65+ yrs of age ([facility]) (1 of 1 - PCV) 2022 Flu Vaccination: Ages 65+: Y early High Dose Recommended (or Modifier)([facility]) 06/12/2024 10/18/2018 COVID-19 Vaccine Screening: Initial Series and Booster Status ([facility]) (2023- season) 2024 Zoster/Shingles Vaccine Seri es Screening: Adults aged 18+ yrs (or HM Modifiers)([facility]) Completed 12/22/2021, 10/14/2021 Medical Devices Not on file Insurance [employer] Care Teams Clinical Training Coordinator Relationship Specialty Start Date End Date Chaparro Zuniga MD [address] [place] [address] PCP - General Family Medicine 10/14/21
--- OUTSIDE RECORDS SUMMARY | 2024-12-04 18:31 | XMS_ITS | Clinical Summary ---
Author Organization Counts include 234 beds at the [facility] Address [address] [place] [id number] Care Team Providers Care Hematology Oncology Consultant Name Role Phone Chaparro Zuniga Primary Care Provider [phone] Allergies No known active allergies Medications Medication Sig Dispensed Refills Start Date End Date Status tamsulosin (Flomax) 0.4 MG capsule Take 1 capsule (0.4 mg total) by mouth 1 (one) time each day. Can stop taking once stone passes 30 capsule 11/16/2024 Active HYDROcodone-acetamin ophen (Yancey) 5-325 MG tablet Take 1 tablet by mouth every 6 (six) hours if needed for severe pain for up to 3 days. 12 tablet 11/16/2024 5 naproxen (Naprosyn) 500 MG tablet Take 1 tablet (500 mg total) by mouth 2 (two) times a day if needed for mild pain or moderate pain for up to 10 days. 20 tablet 11/16/2024 5 tamsulosin (Flomax) 0.4 MG capsule Take 1 capsule (0.4 mg total) by mouth 1 (one) time each day. Can stop taking once stone passes 30 capsule 11/16/2024 5 Discontinued (Reorder) ondansetron ODT (Zofran-ODT) [address] 1 tablet (4 mg total) under the tongue every 8 (eight) hours if needed for nausea or vomiting for up to 7 days. 20 tablet 11/16/2024 5 Encounters Date Type Department Care Team Description 11/16/2024 7:34 AM EST - 11/16/2024 11:30 AM EST Emergency Counts include 234 beds at the [facility] [place] [facility] [address] [place] [address] Tiffanie Morales MD Kidney stone (Primary Dx); Abnormal finding on CT scan Discharge Disposition: Home or Self Care 11/16/2024 Orders Only Counts include 234 beds at the [facility] [place] [facility] [address] [place] [address] Tabatha Rodríguez, RN 11/16/2024 Travel from Last 3 Months Social History Tobacco Use Types Packs/Day Years Used Date Smoking Tobacco: Never Smokeless Tobacco: Never Tobacco Cessation:Counseling Given: Not Answered Sex and Gender Information Value Date Recorded Sex Assigned at Not on file Gender Identity Not on file Sexual Orientation Not on file Travel History Travel Start Travel End [place] 11/15/2024 11/16/2024 Last Filed Vital Signs Vital Sign Reading Time Taken Comments Blood Pressure 140/82 11/16/2024 11:15 AM EST Pulse 59 11/16/2024 11:15 AM EST Temperature 36.9 ??C (98.5 ??F) 11/16/2024 11:[address] Respiratory Rate 16 11/16/2024 11:15 AM EST Oxygen Saturation 95% 11/16/2024 11:15 AM EST Inhaled Oxygen Concentration - - Weight 88.5 kg (195 lb) 11/16/2024 7:36 AM EST Height 182.9 cm (6') 11/16/2024 7:36 AM EST Body Mass Index 26.45 11/16/2024 7:36 AM EST Plan of Treatment Health Maintenance Due Date Last Done Comments CT Colonography 1957 Cologuard 1957 Colonoscopy 1957 Colorectal Cancer Screening 1957 FIT 1957 FOBT 1957 Lipid Panel 1957 Medicare Annual Wellness (AWV) 1957 Sigmoidoscopy 1957 MMR Vaccines (1 of 1 - Standard series) 1958 DTaP/Tdap/Td Vaccines (1 - Tdap) 1976 Pneumococcal Vaccine: 50+ Years (1 of 1 - PCV) 2007 COVID-19 Vaccine (1 - 2023- season) 2024 Influenza Vaccine (#1) 2024 2, 09/20/2021, 08/20/2020, Additional history exists Diabetes Screening 11/16/2027 11/16/2024, 01/24/2023 Respiratory Syncytial Virus (RSV) 60 years and older and/or patients (1 - 1-dose 75+ series) 2032 Zoster Vaccines Completed 12/22/2021, 10/14/2021 HPV Vaccines Aged Out No longer eligi ble based on patient's age to complete this topic Hepatitis A Vaccines Aged Out No long er eligible based on patient's age to complete this topic Hepatitis B Vaccines Aged Out No long er eligible based on patient's age to complete this topic Meningococcal B Vaccine Aged Out No l onger eligible based on patient's age to complete this topic Meningococcal Vaccine Aged Out No kamila cinthia eligible based on patient's age to complete this topic Respiratory Syncytial Virus (RSV) <20 months Aged Out No longer eligible based on patient's age to complete this topic Procedures Procedure Name Priority Date/Time Associated Diagnosis Comments BKR MICROSCOPIC, URINE (NUM) STAT 11/16/2024 10:30 AM EST URINALYSIS WITH REFLEX MICROSCOPIC AND REFLEX CULTURE STAT 11/16/2024 10:[address] ABDOMEN PELVIS WO IV CONTRAST STAT 11/16/2024 9:36 AM EST LIPASE STAT 11/16/2024 8:02 AM EST COMPREHENSIVE METABOLIC PANEL STAT 11/16/2024 8:02 AM EST CBC W/AUTO DIFF, REFLEX MANUAL DIFF IF INDICATED STAT 11/16/2024 8:02 AM EST EXTRA GREEN TOP Routine 11/16/2024 8:01 AM EST EXTRA LIGHT BLUE TOP Routine 11/16/2024 8:01 AM EST EXTRA TUBES Routine 11/16/2024 8:01 AM EST from Last 3 Months Results * (ABNORMAL) Microscopic, urine (11/16/2024 10:30 AM EST) RBC, Urine 7(H) <=4 /HPF 11/16/2024 11:05 AM EST [facility] WBC, Urine 2 <=4 /HPF 11/16/2024 11:05 AM EST [facility] Squamous Epithelial Cells, Urine 0 <=4 /HPF 11/16/2024 11:05 AM EST [facility] Bacteria, Urine Negative Negative /HPF 11/16/2024 11:05 AM EST [facility] Mucus, Urine Occasional( A) (none) /HPF 11/16/2024 11:05 AM EST [facility] Urine Urine specimen obtained by clean catch procedure / Unknown Non-blood Collection / Unknown 11/16/2024 10:30 AM EST 11/16/2024 10:33 AM EST Tiffanie Morales MD LAB URINE ORDERABLE S [facility] [place] [address], * (ABNORMAL) Urinalysis with reflex microscopic and reflex culture (11/16/2024 10:30 AM EST) Color, Urine Yellow Straw, Yellow, Colorless 11/16/2024 11:05 AM EST [facility] Clarity, Urine Clear Clear 11/16/2024 11:05 AM EST [facility] Leukocyte Esterase, Urine Trace(A) Negative 11/16/2024 11:05 AM EST [facility] Nitrite, Urine Negative Negative 11/16/2024 11:05 AM EST [facility] Urobilinogen, Urine Normal Normal 11/16/2024 11:05 AM EST [facility] Protein, Qual, Urine Trace(A) Negative 11/16/2024 11:05 AM EST [facility] pH, Urine 5.5 5.0 - 8.5 11/16/2024 11:05 AM EST [facility] Blood, Urine 1+(A) Negative 11/16/2024 11:05 AM EST [facility] Specific [place], Urine 1.027 1.005 - 1.030 11/16/2024 11:05 AM EST [facility] Ketones, Urine Negative Negative 11/16/2024 11:05 AM EST [facility] Bilirubin, Urine Negative Negative 11/16/2024 11:05 AM EST [facility] Glucose, Qual, Urine Negative Negative 11/16/2024 11:05 AM EST [facility] Urine Urine specimen obtained by clean catch procedure / Unknown Non-blood Collection / Unknown 11/16/2024 10:30 AM EST 11/16/2024 10:33 AM EST Tiffanie Morales MD LAB URINE ORDERABLE S [facility] [address] [place] [address], * CT Abdomen Pelvis WO IV Contrast (11/16/2024 9:36 AM EST) Anatomical Region Laterality Modality Body, Pelvis, Abdomen N/A Computed T omography Impressions 11/16/2024 10:05 AM EST ??1. ??5 mm calculus at the right ureteropelvic junction with mild right hydronephrosis. ??2. ??Small nonobstructive bilateral renal calculi. 3. Colonic diverticulosis without evidence of diverticulitis. 4. Enlarged prostate. Created by: Steve Olivarez MD Signed by: Steve Olivarez MD Signed on: 11/16/2024 10:05 EST Location: [id number] ?? Narrative 11/16/2024 10:05 AM EST ??EXAM: ??CT ABDOMEN AND PELVIS WITHOUT IV CONTRAST INDICATION: Right flank pain COMPARISON: None. TECHNIQUE: Contiguous axial images were obtained from the lung bases to the pelvic floor without intravenous or oral contrast. ??Coronal and sagittal reformations are provided. Up-to-date CT equipment and radiation dose reduction techniques were employed. FINDINGS: LOWER CHEST: Bibasilar atelectasis and/or scarring. LIVER: No mass. No intrahepatic biliary dilatation. GALLBLADDER: No wall thickening. No radiopaque stones. COMMON BILE DUCT: Normal caliber. No radiopaque stones. ?? SPLEEN: Within normal limits. PANCREAS: No mass. No pancreatic fluid collections. ADRENALS: No masses. KIDNEYS: 5 mm calculus at the right ureteropelvic junction with mild right hydronephrosis and perinephric stranding. Multiple small nonobstructive calculus lower pole the right kidney measuring up to 3 mm. 5 mm nonobstructive left renal calculus. 2.2 cm right renal cyst and 1.5 linear left renal cyst with small associated calcifications. LYMPH NODES: No adenopathy. STOMACH, SMALL BOWEL AND COLON: No bowel wall thickening or obstruction. Colonic diverticulosis without evidence of diverticulitis. Small sliding hiatal hernia. APPENDIX: Normal. PERITONEAL CAVITY: No mesenteric stranding or free fluid. No free air. ABDOMINAL AORTA: No aneurysm. Mild atherosclerotic calcifications. PELVIC ORGANS: Enlarged prostate. No bladder wall thickening.. SOFT TISSUE: Small bilateral fat-containing inguinal hernias. Small bilateral hydroceles. Partially imaged peripherally calcified lesion along the fascia at the anterolateral aspect of the anterior compartment of the left proximal thigh and anterior margin of the tensor fascia enrike muscle with the visualized portion measuring 10.7 x 4.4 x 1 cm may be secondary to chronic calcified hematoma or or old injury such as a Beck Floyd lesion. OSSEOUS STRUCTURES: No acute fracture or destructive lesion. Degenerative changes in the spine. Procedure Note Steve Olivarez MD - 11/16/2024 EXAM: CT ABDOMEN AND PELVIS WITHOUT IV CONTRAST INDICATION: Right flank pain COMPARISON: None. TECHNIQUE: Contiguous axial images were obtained from the lung bases tothe pelvic floor without intravenous or oral contrast. Coronal andsagittal reformations are provided. Up-to-date CT equipment and radiationdose reduction techniques were employed. FINDINGS: LOWER CHEST: Bibasilar atelectasis and/or scarring. LIVER: No mass. No intrahepatic biliary dilatation. GALLBLADDER: No wall thickening. No radiopaque stones. COMMON BILE DUCT: Normal caliber. No radiopaque stones. SPLEEN: Within normal limits. PANCREAS: No mass. No pancreatic fluid collections. ADRENALS: No masses. KIDNEYS: 5 mm calculus at the right ureteropelvic junction with mild righthydronephrosis and perinephric stranding. Multiple small nonobstructivecalculus lower pole the right kidney measuring up to 3 mm. 5 mmnonobstructive left renal calculus. 2.2 cm right renal cyst and 1.5 linearleft renal cyst with small associated calcifications. LYMPH NODES: No adenopathy. STOMACH, SMALL BOWEL AND COLON: No bowel wall thickening or obstruction.Colonic diverticulosis without evidence of diverticulitis. Small slidinghiatal hernia. APPENDIX: Normal. PERITONEAL CAVITY: No mesenteric stranding or free fluid. No free air. ABDOMINAL AORTA: No aneurysm. Mild atherosclerotic calcifications. PELVIC ORGANS: Enlarged prostate. No bladder wall thickening.. SOFT TISSUE: Small bilateral fat-containing inguinal hernias. Smallbilateral hydroceles. Partially imaged peripherally calcified lesion alongthe fascia at the anterolateral aspect of the anterior compartment of theleft proximal thigh and anterior margin of the tensor fascia enrike musclewith the visualized portion measuring 10.7 x 4.4 x 1 cm may be secondaryto chronic calcified hematoma or or old injury such as a Beck Lavalleelesion. OSSEOUS STRUCTURES: No acute fracture or destructive lesion. Degenerativechanges in the spine. IMPRESSION: 1. 5 mm calculus at the right ureteropelvic junction with mild righthydronephrosis. 2. Small nonobstructive bilateral renal calculi. 3. Colonic diverticulosis without evidence of diverticulitis. 4. Enlarged prostate. Created by: Steve Olivarez MD Signed by: Steve Olivarez MD Signed on: 11/16/2024 10:05 EST Location: [facility] Tiffanie Morales MD IMG CT PROCEDURES * (ABNORMAL) CBC Auto Diff, Reflex Manual Diff if Indicated (11/16/2024 8:02 AM EST) WBC 8.00 4.40 - 10.50 10*3/uL 11/16/2024 8:10 AM EST [facility] RBC 5.88(H) 4.00 - 5.65 10*6/uL 11/16/2024 8:10 AM EST [facility] Hemoglobin 17.0(H) 12.6 - 16.7 g/dL 11/16/2024 8:10 AM EST [facility] Hematocrit 46.6 36.9 - 48.5 % 11/16/2024 8:10 AM EST [facility] MCV 79.3(L) 82.4 - 99.3 fL 11/16/2024 8:10 AM EST [facility] MCH 28.9 27.5 - 34.1 pg 11/16/2024 8:10 AM EST [facility] MCHC 36.5(H) 31.7 - 36.1 g/dL 11/16/2024 8:10 AM EST [facility] RDW 13.3 11.4 - 14.9 % 11/16/2024 8:10 AM EST [facility] Platelet Count 216 139 - 361 10*3/uL 11/16/2024 8:10 AM EST [facility] MPV 9.4(L) 9.7 - 12.5 fL 11/16/2024 8:10 AM EST [facility] Neutrophils % 78.8(H) 50.0 - 70.0 % 11/16/2024 8:10 AM EST [facility] Lymphocytes % 11.4(L) 20.5 - 45.0 % 11/16/2024 8:10 AM EST [facility] Monocytes % 7.3 1.0 - 15.0 % 11/16/2024 8:10 AM EST [facility] Eosinophils % 1.5 0.0 - 5.0 % 11/16/2024 8:10 AM EST [facility] Basophils % 0.6 0.0 - 2.0 % 11/16/2024 8:10 AM EST [facility] Neutrophils Absolute 6.31 1.50 - 7.50 10*3/uL 11/16/2024 8:10 AM EST [facility] Lymphocytes Absolute 0.91(L) 1.00 - 4.80 10*3/uL 11/16/2024 8:10 AM EST [facility] Monocytes Absolute 0.58 0.00 - 0.80 10*3/uL 11/16/2024 8:10 AM EST [facility] Eosinophils Absolute 0.12 0.00 - 0.50 10*3/uL 11/16/2024 8:10 AM EST [facility] Basophil Absolute 0.05 0.00 - 0.20 10*3/uL 11/16/2024 8:10 AM EST [facility] Blood Venous blood specimen / Unknown Venipuncture / Unknown 11/16/2024 8:02 AM EST 11/16/2024 8:05 AM EST Tiffanie Morales MD LAB BLOOD ORDERABLE S Performing Organization Address [facility] Co de Phone Number [facility] [address] [place], [place] [address], * Lipase (11/16/2024 8:02 AM EST) Lipase 48 10 - 60 U/L [facility] [id number]-OKVV-[id number] V-2_[facility]_ EUA 11/16/2024 8:26 AM EST [facility] Blood Venous blood specimen / Unknown Venipuncture / Unknown 11/16/2024 8:02 AM EST 11/16/2024 8:05 AM EST Tiffanie Morales MD LAB BLOOD ORDERABLE S Performing Organization Address [facility] de Phone Number [facility] [address] [facility] [place] [address], * (ABNORMAL) Comprehensive metabolic panel (11/16/2024 8:02 AM EST) Sodium 137 135 - 145 mmol/L [facility] ANTI-SARS- COV-2_[facility] E [facility]AGNOST[facility] S_EUA 11/16/2024 8:26 AM EST [facility] Potassium 3.6 3.5 - 5.0 mmol/L [facility]- COV-2_RO[facility] E DIAGNOSTIC S_EUA 11/16/2024 8:26 AM EST [facility] Chloride 98 98 - 110 mmol/L [facility]- COV-2_ROCH E DIAGNOSTIC S_EUA 11/16/2024 8:26 AM EST [facility] Carbon Dioxide 25.0 24.0 - 32.0 mmol/L [facility]- COV-2_ROCH E DIAGNOSTIC S_EUA 11/16/2024 8:26 AM EST [facility] Anion Gap 14 5 - 15 mmol/L [facility]-S[facility]- COV-2_ROCH E DIAGNOSTIC S_EUA 11/16/2024 8:26 AM EST [facility] Comment: Hypoalbuminemia can cause the anion gap to be underestimated. Each g/dL that albumin is decreased causes the anion gap to be decreased by 2.5 mmol/L. Anion gap corrected for hypoalbuminemia = Anion Gap + 2.5(4-Albumin) BUN 17.0 5.0 - 25.0 mg/dL [facility]- COV-2_ROCH E [facility]AGNOSTIC S_EUA 11/16/2024 8:26 AM EST [facility] Creatinine 1.11 0.60 - 1.20 mg/dL [facility]- COV-2_ROCH E DIAGNOSTIC S_EUA 11/16/2024 8:26 AM EST [facility] Glucose 143(H) 70 - 100 mg/dL [facility]- COV-2_ROCH E DIAGNOSTIC S_EUA 11/16/2024 8:26 AM EST [facility] Calcium 9.6 8.5 - 10.5 mg/dL [facility]- COV-2_ROCH E DIAGNOSTIC S_EUA 11/16/2024 8:26 AM EST [facility] AST 18 5 - 46 U/L [facility]TI-S[facility]- COV-2_ROCH E DIAGNOSTIC S_EUA 11/16/2024 8:26 AM EST [facility] ALT 18 4 - 51 U/L [facility] ANTI-SARS- COV-2_ROCH E DIAGNOSTIC S_EUA 11/16/2024 8:26 AM EST [facility] Alkaline Phosphatase 75 40 - 129 U/L [facility]TI-S[facility]- COV-2_ROCH E DIAGNOSTIC S_EUA 11/16/2024 8:26 AM EST [facility] Protein, Total 7.7 6.5 - 8.0 g/dL [facility]- COV-2_ROCH E DIAGNOSTIC S_EUA 11/16/2024 8:26 AM EST [facility] Albumin 4.50 3.20 - 5.50 g/dL [facility]TI-S[facility]- COV-2_ROCH E DIAGNOSTIC S_EUA 11/16/2024 8:26 AM EST [facility] Globulin 3.2 1.9 - 3.9 g/dL [facility]- COV-2_ROCH E DIAGNOSTIC S_EUA 11/16/2024 8:26 AM EST [facility] A/G Ratio 1.4 1.1 - 2.2 [facility] ANTI-SARS- COV-2_ROCH E DIAGNOSTIC S_EUA 11/16/2024 8:26 AM EST [facility] Bilirubin, Total 0.40 0.10 - 1.50 mg/dL [facility]-S[facility]- COV-2_ROCH E DIAGNOSTIC S_EUA 11/16/2024 8:26 AM EST [facility] eGFR 72.8 >=60.0 mL/min/{1 .73_m2} 11/16/2024 8:26 AM EST [facility] Comment: GFR calculated based on CKD-EPI 2020 Creatinine Equation Age (Years) ? Average GFR 20-29 ? 116 mL/min/1.73 m2 30-39 ? 107 mL/min/1.73 m2 40-49 ? 99 mL/min/1.73 m2 50-59 ? 93 mL/min/1.73 m2 60-69 ? 85 mL/min/1.73 m2 70+ ? 75 mL/min/1.73 m2 Acceptable GFR: ?>= 60 mL/min/1.73 m2 Chronic Kidney Disease: ??<60 mL/min/1.73 m2 Kidney Failure: ?<15 mL/min/1.73 m2 Blood Venous blood specimen / Unknown Venipuncture / Unknown 11/16/2024 8:02 AM EST 11/16/2024 8:05 AM EST Tiffanie Morales MD LAB BLOOD ORDERABLE S [facility] [address] [place] [address], * Extra Green Top (11/16/2024 8:01 AM EST) Extra Tube Hold for add-ons. 11/16/2024 3:06 PM EST [facility] Comment:Auto resulted. Blood Venous blood specimen / Unknown 11/16/2024 8:01 AM EST 11/16/2024 8:06 AM EST Tiffanie Morales MD LAB BLOOD [facility]ABLE S [facility] [address] [place] [address], * Extra Light Blue Top (11/16/2024 8:01 AM EST) Blood Venous blood specimen / Unknown 11/16/2024 8:01 AM EST 11/16/2024 8:06 AM EST Tiffanie Morales MD LAB BLOOD [facility]ABLE S [facility] [address] [place] [address], from Last 3 Months Care Teams Hematology Oncology Consultant Relationship Specialty Start Date End Date Chaparro Zuniga [address] [place] [phone] PCP - General 11/16/24
== END 2024-12-02 14:23 | disposition home or self-care (01) ==
PROVIDERS: Emergency Medicine; Emergency Provider Physician Assistant; PCP Family Medicine
DX: N20.1 Calculus of ureter (principal); R94.4 Abnormal results of kidney function studies
CPT/HCPCS: 36415; 74018; 74176; 80048; 81003; 85025; 96360; 99284; J7030

== ENCOUNTER 2024-12-05 02:59 | Day surgery (SDC) | payer MEDICARE, SELFPAY ==
--- NOTE | 2024-12-03 14:51 | PC.NURSE ---
Report to the Outpatient Waiting Room, entrance under the green pavilion located off [facility], at time _10 AM on date __12/05/24 . Planned Procedure Time: __1200 NOON .? Time changes happen often and if your time is changed the preop area will call you the afternoon before. - You and your visitor will be asked to self-screen and do not enter if you have any COVID symptoms. Please call surgeon if you need to reschedule. - A mask is optional within the hospital at this time. Patients may have clear liquids (water, carbonated beverages, clear teas, apple juice) until 3 hours prior to surgery( 9 AM) with a maximum of 20 ounces. - No food from midnight until time of surgery and no smoking. This includes no chewing gum, candy or mints. Take only the following medications with a SIP of water on the morning of surgery: ___NONE DO NOT STOP ANY OF YOUR OTHER PRESCRIPTION MEDICATIONS PRIOR TO SURGERY EXCEPT THE FOLLOWING Medications to discontinue per physician __HOLD ALL VITAMINS AND SUPPLEMENTS 3 DAYS PRE OP( LAST DOSE 12/03/24 PER PT) Please no make-up, nail faroese, hairspray, perfume, deodorant, or body powder the day of surgery.? No jewelry (including any body piercings) or valuables the day of surgery, leave them at home.? Please take a shower or bath the night before, or the morning of, surgery with an antibacterial soap.? Wear comfortable, loose fitting clothing.? Children are encouraged to wear pajamas. - Jewelry must be removed prior to entering the operating room.? Rings and piercings that are not removed may be cut off. - The hospital will not accept responsibility for valuables.? - Please leave all valuables, including medications, at home the day of surgery. If you are going home after surgery, a licensed intermodal owner operator truck driver must drive you home.? - NO public transportation without another adult if you receive anesthesia. - We recommend that an adult stay with you for 24 hours following discharge. - We also recommend that you do not drive, make important decision, drink alcoholic beverages, or take any drugs that were not prescribed by your health care provider for at least 24 hours after your discharge time. For Pediatric surgeries, we recommend two adults accompany the child home. Follow any additional instructions given to you from your surgeon. Telephone instructions given to _PATIENT and asked if any additional questions and then verbalized understanding. Patient advised to call surgeon office or pre surgery nurse liaison [phone] if any additional questions.
[2024-12-03 15:11] VITALS: BMI 26.4
[2024-12-05] VITALS (7 sets, daily range): BP systolic 132–142; BP diastolic 79–91; PULSE 63–80; RESP 14–20; TEMP 36.2–36.6; O2SAT 96–99
--- NOTE | ~2024-12-05 | XR_ITS ---
EXAMINATION: XR abdomen/kub 1V DATE: 12/05/2024 10:24 INDICATION: Right-sided renal stone prior to planned lithotripsy. TECHNIQUE: A supine view of the abdomen on 2 radiographs was obtained. COMPARISON: CT and radiographs dated 12/02/2024 FINDINGS: No change in the 5 mm stone in the mid right ureter which projects along the inferior aspect of the r ight transverse process of L4. 4 mm stone projecting over the mid left kidney. A smaller stone previo usly seen at the lower pole the right kidney is not visualized likely due to its small size and super imposed stool in the colon. Multiple phleboliths in the pelvis. Nonobstructive bowel gas pattern. IMPRESSION: 1. 4 mm left renal stone and unchanged 5 mm stone in the mid right ureter. Reviewed, dictated and finalized at location A. [facility]
--- NOTE | 2024-12-05 06:31 | WPDHPUPDATE1 ---
History and Physical Update Update Date/Time: 12/05/24 06:31 History and Physical has been reviewed, including an updated exam of the patient. There are NO changes in the patient's condition. Risks, benefits, and alternatives have been discussed and questions answered. Patient agrees to proceed with procedure.
--- NOTE | 2024-12-05 07:35 | P.PNAN_ITS ---
Anes - Initial Pre Proc Eval Procedure: Operation Date: 12/05/24 12:00 Proposed Procedures p Right Extracorporeal Shock Wave Lithotripsy - Rito Frost MD Date/Time: 12/05/24 07:35 Surgeon: Rito Frost MD Pre Op Diagnosis: Right Ureteral Stone Patient Data Age: 69 Gender: M Height: 1.83 m Weight: 88.45 kg Allergies Allergy/AdvReac Type Severity Reaction Status Date / Time No Known Allergies Allergy Verified 12/03/24 14:48 Home Medications ?Medication ?Instructions ?Recorded ?Confirmed ?Type cholecalciferol (vitamin D3) 25 25 mcg PO DAILY 09/12/23 12/03/24 History mcg (1,000 unit) tablet (Vitamin D3) potassium chloride 10 mEq 20 meq (2 x 10 mEq) PO DAILY #180 05/05/24 12/03/24 Rx tablet,extended release tabs omega-3 acid ethyl esters 1 gram 4 cap PO DAILY #360 caps 05/27/24 12/03/24 Rx capsule doxycycline hyclate 100 mg capsule 100 mg PO DAILY #20 caps 07/14/24 12/03/24 Rx losartan 50 mg tablet 50 mg PO DAILY 07/14/24 12/03/24 History potassium chloride 10 mEq 10 meq PO DAILY 07/14/24 12/03/24 History tablet,extended release prednisone 50 mg tablet 50 mg PO DAILY #5 tabs 07/14/24 12/03/24 Rx triamterene 75 1 tablet PO DAILY 07/14/24 12/03/24 History mg-hydrochlorothiazide 50 mg tablet losartan 50 mg tablet See Rx Instructions .Route 08/22/24 12/03/24 Rx .COMPLEX #90 tabs triamterene 75 See Rx Instructions .Route 11/20/24 12/03/24 Rx mg-hydrochlorothiazide 50 mg tablet .COMPLEX #90 tabs tamsulosin 0.4 mg capsule 0.4 mg PO DAILY 11/25/24 12/03/24 History oxycodone-acetaminophen 5 mg-325 1 tablet PO Q6H PRN pain #14 tabs 12/02/24 12/03/24 Rx mg tablet glucosamine sulf dipot cap PO DAILY 12/03/24 History chlr,msm,chond 550 mg-C 30 mg-brady 1 mg capsule (Glucosamine Chondroitin) turmeric 400 mg capsule mg PO DAILY 12/03/24 History Patient hx anesthesia problems: none Family hx anesthesia problems: none Results Review: All pre-operative results and documents have been reviewed as part of the pre- operative evaluation. [facility] Past Medical History Medical History (Updated 12/05/24 @ 07:36 by Mark Brito DO) Essential hypertension HLD (hyperlipidemia) Osteoarthritis Diverticulosis Family History Family History Sibling Diabetes mellitus Hypertension Mother Carcinoma of colon Social History Social History Social History: Spouse Smoking status: Never smoker Second hand tobacco smoke exposure: No Alcohol intake: never Substance use: never Substance use type: does not use Do You Feel Safe in your Home?: Yes Lack of Transportation: No Lack of Food: Never True Current Housing: I Have Housing Concerned About Future Housing: No Difficulty Paying Gas/Electric Bills: No Difficulty Paying for Meds: No Currently Unemployed: No Education: Don't Know Difficulty w/ Childcare or Family Care: No Living arrangements: with family Occupation/Education: occupation Gender identity (if verbalized by the patient): Male Sexual Orientation (if Verbalized by the Patient): Straight or Heterosexual Spiritual care concerns: No Anes - Eval Final PreProcedure Day of Procedure 12/05/24 07:35 Patient weight: overweight Heart: regular rate and rhythm Lungs: clear to auscultation Airway: Mallampati scale class II Neurological: alert and oriented Last oral intake: >/= 8 hours ASA classification: II Emergent: no Anesthetic plan: proceed Anesthesia type and monitoring: general LMA and standard monitoring Results Review: All pre-operative results and documents have been reviewed as part of the pre- operative evaluation. Informed Consent: The patient's anesthetic plan and its attendant risks and benefits were dis cussed with the patient/family/POA. Questions were solicited and answers provided to the satisfaction of the patient/family/POA.
[2024-12-05] MEDS: LACTATED RINGERS 1,000 ML 30 ML IV CONT (10:30)
[2024-12-05] MEDS: ceFAZolin 2 GM/D5W 50 ML 2 GM/50 ML BAG IVPB (12:00)
--- NOTE | 2024-12-05 12:13 | W.PM.PROC2 ---
Procedure Note - Detailed Date of Procedure 12/05/24 Pre-op Diagnosis Right Ureteral Stone Post-op Diagnosis Same Procedure Performed Right ESWL Surgeon Rito Frost MD Anesthesia General Description of Procedure The patient was brought to the operative suite where he was placed in the supine position on the [facility]ier lithotripsy table. The focal point of the lithotripter was placed at a 5mm right mid-ureteral calculus. A total of 3000 shocks were delivered at a power setting of 4. There appeared to be good fragmentation of the stone. The patient tolerated the procedure well and was taken to the recovery room in good condition. Drains No Pathology None sent Complications No immediate complications Condition Stable Disposition PACU
--- NOTE | 2024-12-08 11:48 | P.HP_ITS ---
History of Present Illness History of Present Illness Consent: Risks, benefits, and alternatives have been discussed and questions answered. Patient agrees to proceed with procedure. Chief complaint: Right Ureteral Stone Narrative: Abran Bran is a 69 year old male Who has been symptomatic from a 5 mm right proximal ureteral stone for approximately 10 days. He has had a slight rise in his serum creatinine. Specifically, he reports right flank pain with mild nausea but no vomiting fevers chills or gross hematuria. After discussion of options he has elected for right ESWL. He is aware the risk including, but not limited to, hematuria, perinephric hematoma and need for additional procedures. Review of Systems Review of Systems: All systems reviewed & are unremarkable except as noted in HPI and below PMFSH Past Medical History Medical History (Updated 12/05/24 @ 12:16 by Rito Frost MD) Essential hypertension HLD (hyperlipidemia) Osteoarthritis Diverticulosis Family History Family History Sibling Diabetes mellitus Hypertension Mother Carcinoma of colon Social History Social History Social History: Spouse Smoking status: Never smoker Second hand tobacco smoke exposure: No Alcohol intake: never Substance use: never Substance use type: does not use Do You Feel Safe in your Home?: Yes Lack of Transportation: No Lack of Food: Never True Current Housing: I Have Housing Concerned About Future Housing: No Difficulty Paying Gas/Electric Bills: No Difficulty Paying for Meds: No Currently Unemployed: No Education: Don't Know Difficulty w/ Childcare or Family Care: No Living arrangements: with family Occupation/Education: occupation Gender identity (if verbalized by the patient): Male Sexual Orientation (if Verbalized by the Patient): Straight or Heterosexual Spiritual care concerns: No Meds Home Medications and Allergies Home Medications ?Medication ?Instructions ?Recorded ?Confirmed ?Type cholecalciferol (vitamin D3) 25 25 mcg PO DAILY 09/12/23 12/03/24 History mcg (1,000 unit) tablet (Vitamin D3) potassium chloride 10 mEq 20 meq (2 x 10 mEq) PO DAILY #180 05/05/24 12/03/24 Rx tablet,extended release tabs omega-3 acid ethyl esters 1 gram 4 cap PO DAILY #360 caps 05/27/24 12/03/24 Rx capsule doxycycline hyclate 100 mg capsule 100 mg PO DAILY #20 caps 07/14/24 12/03/24 Rx losartan 50 mg tablet 50 mg PO DAILY 07/14/24 12/03/24 History potassium chloride 10 mEq 10 meq PO DAILY 07/14/24 12/03/24 History tablet,extended release prednisone 50 mg tablet 50 mg PO DAILY #5 tabs 07/14/24 12/03/24 Rx triamterene 75 1 tablet PO DAILY 07/14/24 12/03/24 History mg-hydrochlorothiazide 50 mg tablet losartan 50 mg tablet See Rx Instructions .Route 08/22/24 12/03/24 Rx .COMPLEX #90 tabs triamterene 75 See Rx Instructions .Route 11/20/24 12/03/24 Rx mg-hydrochlorothiazide 50 mg tablet .COMPLEX #90 tabs tamsulosin 0.4 mg capsule 0.4 mg PO DAILY 11/25/24 12/03/24 History oxycodone-acetaminophen 5 mg-325 1 tablet PO Q6H PRN pain #14 tabs 12/02/24 12/03/24 Rx mg tablet glucosamine sulf dipot cap PO DAILY 12/03/24 History chlr,msm,chond 550 mg-C 30 mg-brady 1 mg capsule (Glucosamine Chondroitin) turmeric 400 mg capsule mg PO DAILY 12/03/24 History hydrocodone 5 mg-acetaminophen 325 1 - 2 tablet PO Q6H PRN pain #20 12/05/24 Rx mg tablet tabs Allergies Allergy/AdvReac Type Severity Reaction Status Date / Time No Known Allergies Allergy Verified 12/03/24 14:48 Exam Const: General: no acute distress Resp: Effort & Inspection: normal respiratory effort GI: Inspection: non-distended GI Palp: No abdominal tenderness and No Guarding due to palpation present (GI) Auscultation: normal bowel sounds Assessment and Plan Assessment and plan (1) Right ureteral stone: Code(s): N20.1 - Calculus of ureter Status: Acute Assessment and Plan: * Right ESWL
== END 2024-12-05 14:11 | disposition home or self-care (01) ==
PROVIDERS: PCP Family Medicine; Visit Provider Urology
PROC: (CPT 50590; principal; 2024-12-05 12:00)
DX: N20.1 Calculus of ureter (principal)
CPT/HCPCS: 50590; 74018; J0690; J2003; J2405; J2704; J3010; J7120

== ENCOUNTER 2024-12-30 09:26 | Outpatient (CLI) | payer MEDICARE, SELFPAY ==
--- NOTE | ~2024-12-30 | XR_ITS ---
XR abdomen/kub 1V 12/30/2024 09:38 INDICATION: Kidney stone TECHNIQUE: KUB COMPARISON: 12/05/2024 FINDINGS: Bowel gas pattern is normal. Moderate colonic fecal loading. Mild levoscoliosis. There is n o evidence of free air, mass, organomegaly, ascites or obstruction. No abnormal calculi are seen. T he bones appear intact. IMPRESSION: 1: No acute abdominal abnormality identified. Reviewed, dictated and finalized at location B. [facility]
== END 2024-12-30 09:27 | disposition home or self-care (01) ==
LOC: MICIMG 09:28
PROVIDERS: PCP Family Medicine; Visit Provider Urology
DX: N20.0 Calculus of kidney (principal)
CPT/HCPCS: 74018